=== PATIENT | female | born 1960 | race Caucasian/White ===

== ENCOUNTER → 2017-02-03 | Outpatient (CLI) | payer MEDICARE ==
--- NOTE | 2017-02-04 12:37 | MM ---
Reason for exam: follow-up at short interval from prior study. Last mammogram was performed 6 months ago. History: Patient is postmenopausal and is nulliparous. Family history of breast cancer in grandmother at age 65. Physical Findings: Nurse did not find any significant physical abnormalities on exam. MG 3D Diag Mammo W/Cad RT CC, MLO, XCCL, and ML view(s) were taken of the right breast. Prior study comparison: August 16, 2016, bilateral MG 3d screening mammo w/cad. There are scattered fibroglandular densities. No significant new findings when compared with previous films. These results were verbally communicated with the patient and result sheet given to the patient on 02/03/17. ASSESSMENT: Benign, BI-RAD 2 RECOMMENDATION: Return to routine screening mammogram schedule for both breasts. Back on schedule.
== END | disposition home or self-care (01) ==
LOC: RADMAMWWP 09:05
PROVIDERS: ATTEND Family Medicine
DX: R92.8 Other abnormal and inconclusive findings on diagnostic imaging of breast (principal)
CPT/HCPCS: G0206; G0279

== ENCOUNTER → 2017-06-24 | Outpatient (CLI) | payer MEDICARE ==
--- NOTE | 2017-06-24 10:29 | MR ---
EXAMINATION TYPE: MR cervical spine wo/w con DATE OF EXAM: 06/24/2017 COMPARISON: NONE HISTORY: spondylosis w/o myelopathy TECHNIQUE: Multiplanar, multisequence images of the cervical spine were acquired utilizing 7 mL intravenous Gada vist gadolinium contrast. Diffusion weighted imaging was performed. C2-C3: Facet arthropathy greater on the left with no canal stenosis or foraminal encroachment. No dis c herniation. C3-C4: Degenerative disc disease and broad-based left paracentral disc bulging with facet arthropathy . Moderate to severe left-sided foraminal encroachment. Motion artifact limits assessment spinal reina l. There is mild effacement of thecal sac. C4-C5: Moderate to severe degenerative disc disease with broad-based central disc protrusion. Uncover tebral joint hypertrophy and facet arthropathy contribute to bilateral foraminal encroachment. There is mild canal stenosis C5-C6: Postsurgical change with uncovertebral joint hypertrophy and facet arthropathy. Moderate bilat eral foraminal encroachment. Posterior spondylosis results in borderline canal stenosis. C6-C7: Facet arthropathy but no canal stenosis. Neural foramina appear patent. No disc herniation. C7-T1: No evidence for degenerative disc disease. No disc bulge/herniation or protrusion. No Canal stenosis. Foramina are patent bilaterally. Cervical segments are intact. There is normal alignment. Limited assessment spinal cord due to motio n artifact. Craniovertebral junction relationships are within normal limits. IMPRESSION: 1. Central disc protrusion with hypertrophic changes C4-C5 results in canal stenosis and bilateral si gnificant foraminal encroachment. 2. Stable left paracentral broad-based disc bulging with hypertrophic changes C3-C4 and left-sided fo raminal encroachment. Mild effacement of thecal sac. 3. Postsurgical changes demonstrate no diagnostic evidence of disc herniation. 4. Multilevel foraminal encroachment. 5. Limited assessment spinal cord due to motion artifact.
--- NOTE | 2017-06-26 13:10 | MR ---
EXAMINATION TYPE: MR lumbar spine w con DATE OF EXAM: 06/25/2017 COMPARISON: NONE HISTORY: intervertebral disc displacement lsp CONTRAST: 7 mL intravenous Gadavist. TECHNIQUE: Multiplanar, multisequence images of the lumbar spine were acquired. FINDINGS: Postsurgical changes are through the lumbar spine with pedicle screws present L5-S1. L5-S1: Laminectomy has been performed. No spinal canal stenosis is present. No significant anterior t hecal sac compression is evident. Minimal residual disc remains present. Foramen appear patent as vis ualized. There is limitation due to the pedicle screws. L4-L5: There is laminectomy present. Pedicle screws are present limiting evaluation of the foramen. F oramen appear patent as visualized. No AP spinal canal stenosis present. Disc level appears preserved . L3-L4: Mild disc bulge is present with anterior thecal sac contact. Facet hypertrophy is present. The re is mild diffuse narrowing. Mild facet hypertrophy is present. No AP spinal canal stenosis is prese nt. Neural foramen appear patent as visualized limitation due to the pedicles. L2-L3: No significant disc bulge or disc herniation. No spinal canal stenosis. No foraminal stenosi s. Mild facet hypertrophy is present on the right with mild posterior lateral thecal sac compression .. L1-L2: No significant disc bulge or disc herniation. No spinal canal stenosis. No foraminal stenosi s. Mild facet hypertrophy is present. No spinal canal stenosis or neural foraminal stenosis is prese nt.. T12-L1: No significant disc bulge or disc herniation. No spinal canal stenosis. No foraminal stenos is. Neural foramen are patent.. No abnormal enhancement. IMPRESSION: 1. Postsurgical changes. No stenosis is evident. Some mild canal narrowing at L3-4 may be present. Fa cet hypertrophy as noted above.
== END | disposition home or self-care (01) ==
LOC: RADMRIMAIN 08:34
PROVIDERS: ATTEND Family Medicine
DX: M50.21 Other cervical disc displacement, high cervical region (principal); M48.02 Spinal stenosis, cervical region; M51.26 Other intervertebral disc displacement, lumbar region; Z98.890 Other specified postprocedural states
CPT/HCPCS: 72149; 72156; A9581

== ENCOUNTER → 2017-08-17 | Outpatient (CLI) | payer MEDICARE ==
--- NOTE | 2017-08-22 07:18 | MM ---
Reason for exam: screening (asymptomatic). Last mammogram was performed 6 months ago. History: Patient is postmenopausal and is nulliparous. Family history of breast cancer in grandmother at age 65. Physical Findings: A clinical breast exam by your physician is recommended on an annual basis and results should be correlated with mammographic findings. MG 3D Screening Mammo W/Cad Bilateral CC and MLO view(s) were taken. Prior study comparison: February 03, 2017, right breast MG 3d diag mammo w/cad RT. August 16, 2016, bilateral MG 3d screening mammo w/cad. August 13, 2015, bilateral MG screening mammo w CAD. There are scattered fibroglandular densities. No suspicious abnormality. No significant changes when compared with prior studies. ASSESSMENT: Negative, BI-RAD 1 RECOMMENDATION: Routine screening mammogram of both breasts in 1 year.
== END | disposition home or self-care (01) ==
LOC: RADMAMWWP 08:52
PROVIDERS: ATTEND Family Medicine
DX: Z12.31 Encounter for screening mammogram for malignant neoplasm of breast (principal)
CPT/HCPCS: 77063; G0202

== ENCOUNTER 2018-01-01 10:35 | Emergency (ER) | payer MEDICARE ==
[2018-01-01 10:39] VITALS: TEMP 98
--- NOTE | 2018-01-01 11:04 | ED ---
General Adult HPI - General Chief complaint: Psychiatric Symptoms Stated complaint: Mental Health Time Seen by Provider: 01/01/18 10:41 Source: patient, family, RN notes reviewed Mode of arrival: ambulatory Limitations: no limitations - History of Present Illness Initial comments: Patient 57-year-old female presenting to the emergency room today with her with a chief complaint of having some depression. Patient doesn't that the last 3 weeks she's been feeling more down not quite like herself. states she's been sleeping more. Sensation does not seem to have any energy to wanting to do anything. States that she is in very critical of him worrying about money. States that there getting set to [place] going [place] her house here. He states that he feels that she is very stressed out and worried about money. States that she does not want him to spend any more money. Was complaining about him trying to get a haircut. States that appetites been down. States that she did make a comment of suicide last week. Patient and stated was more of a passing thought there is no specific plan. She does admit that she feels like she feels that she doesn't live. She states she has no intentions of hurting herself. She states she's too scared to do anything like that. Patient denies any other complaints or symptoms. Patient denies any recent fever, chills, shortness of breath, chest pain, back pain, nausea or vomiting, numbness or tingling, dysuria or hematuria, headaches or visual changes, or any other complaints. - Related Data Allergies Allergy/AdvReac Type Severity Reaction Status Date / Time Penicillins Allergy Unknown Verified 01/01/18 10:39 Review of Systems ROS Statement: Those systems with pertinent positive or pertinent negative responses have been documented in the HPI. ROS Other: All systems not noted in ROS Statement are negative. Past Medical History Past Medical History: Asthma History of Any Multi-Drug Resistant Organisms: None Reported Past Surgical History: Back Surgery, Bowel Resection, Hysterectomy Past Psychological History: Anxiety Smoking Status: Former smoker Past Alcohol Use History: None Reported Past Drug Use History: None Reported General Exam - General Exam Comments Initial Comments: General: The patient is awake and alert, in no distress, and does not appear acutely ill. Eye: Pupils are equal, round and reactive to light, extra-ocular movements are intact. No nystagmus. There is normal conjunctiva bilaterally. No signs of icterus. Ears, nose, mouth and throat: There are moist mucous membranes and no oral lesions. Neck: The neck is supple, there is no tenderness or JVD. Cardiovascular: There is a regular rate and rhythm. No murmur, rub or gallop is appreciated. Respiratory: Lungs are clear to auscultation, respirations are non-labored, breath sounds are equal. No wheezes, stridor, rales, or rhonchi. Musculoskeletal: Normal ROM, no tenderness. Strength 5/5. Sensation intact. Pulses equal bilaterally 2+. Neurological: A&O x 3. CN II-XII intact, There are no obvious motor or sensory deficits. Coordination appears grossly intact. Speech is normal. Skin: Skin is warm and dry and no rashes or lesions are noted. Psychiatric: Cooperative. Limitations: no limitations Course Vital Signs 01/01/18 10:37 Temperature 98.0 F Pulse Rate 95 Respiratory 20 Rate Blood Pressure 120/80 O2 Sat by Pulse 98 Oximetry Medical Decision Making - Medical Decision Making Patient has been seen here in the emergency room by [facility]. They recommend the patient may follow up outpatient. Patient has no suicidal thoughts or intentions. Patient contracts for safety will be discharged home. Advised return if any symptoms increase or worsen. - Lab Data Lab Results 01/01/18 Range/Units 11:34 Urine Opiates Screen Not Detected (NotDetected) Ur Oxycodone Screen Not Detected (NotDetected) Urine Methadone Screen Not Detected (NotDetected) Ur Propoxyphene Screen Not Detected (NotDetected) Ur Barbiturates Screen Not Detected (NotDetected) U Tricyclic Antidepress Not Detected (NotDetected) Ur Phencyclidine Scrn Not Detected (NotDetected) Ur Amphetamines Screen Not Detected (NotDetected) U Methamphetamines Scrn Not Detected (NotDetected) U Benzodiazepines Scrn Not Detected (NotDetected) Urine Cocaine Screen Not Detected (NotDetected) U Marijuana (THC) Screen Detected H (NotDetected) Disposition Clinical Impression: Depression Disposition: HOME SELF-CARE Condition: Stable Instructions: Depression (ED) Additional Instructions: Please follow-up with community mental health as discussed here in emergency room. Please return to emergency room if any symptoms increase worsen or for new concerns. Referrals: Judah Webb MD [Primary Care Provider] - 1-2 days Time of Disposition: 12:43
[2018-01-01 12:02] LABS: Amphetamine Screen,Urine Not Detected (NotDetected); Barbiturate Screen,Urine Not Detected (NotDetected); Benzodiazepines Screen,Urine Not Detected (NotDetected); Cocaine Screen,Urine Not Detected (NotDetected); Methadone Screen, Urine Not Detected (NotDetected); Opiate Screen,Urine Not Detected (NotDetected); Oxycodone Screen, Urine Not Detected (NotDetected); Phencyclidine Screen,Urine Not Detected (NotDetected); Tricyclic Antidepressant,Urine Not Detected (NotDetected); Urn Cannabinoid Scrn Detected (NotDetected)
[2018-01-01 12:59] VITALS: BP 140/88; PULSE 82; RESP 16
== END 2018-01-01 12:59 | disposition home or self-care (01) ==
LOC: EC 10:35
DX: F32.9 Major depressive disorder, single episode, unspecified (principal); Z87.891 Personal history of nicotine dependence; Z88.0 Allergy status to penicillin
CPT/HCPCS: 80306; 82075; 99284

== ENCOUNTER 2018-01-23 04:02 | Emergency (ER) | payer MEDICARE ==
[2018-01-23 04:14] VITALS: RESP 16; TEMP 97.2
[2018-01-23 04:53] LABS: Basophils % (A) 0 %; Eosinophils # (A) 0.1 k/uL (0-0.7); Eosinophils % (A) 2 %; HCT 42.4 % (34.0-46.0); HGB 13.8 gm/dL (11.4-16.0); Lymphocytes # (A) 1.4 k/uL (1.0-4.8); Lymphocytes % (A) 17 %; MCH 27.6 pg (25.0-35.0); MCHC 32.6 g/dL (31.0-37.0); MCV 84.6 fL (80.0-100.0); Mean Platelet Volume 7.1; Monocytes # (A) 0.6 k/uL (0-1.0); Monocytes % (A) 7 %; Neutrophils # (A) 5.8 k/uL (1.3-7.7); Neutrophils % (A) 72 %; Platelet Count 401 k/uL (150-450); RBC 5.01 m/uL (3.80-5.40); RDW 15.9 % (11.5-15.5); WBC 8.1 k/uL (3.8-10.6)
[2018-01-23 04:55] LABS: Appearance,Urine Cloudy (Clear); Bacteria,Urine Occasional /hpf; Bilirubin,Urine Negative (Negative); Blood,Urine Negative (Negative); Color,Urine Yellow; Glucose,Urine (UA) Negative (Negative); Ketones,Urine Negative (Negative); Leukocyte Esterase,Urine Moderate (Negative); Mucus,Urine Moderate /hpf; Nitrite,Urine Negative (Negative); PH, Urine 5.5 (5.0-8.0); Protein,Urine Trace (Negative); RBC,Urine 2 /hpf (0-5); Squamous Epithelial Cell,Urine 8 /hpf (0-4); WBC,Urine 7 /hpf (0-5)
[2018-01-23 05:06] LABS: ALT 21 U/L (9-52); AST 15 U/L (14-36); Albumin 3.8 g/dL (3.5-5.0); Alkaline Phosphatase 97 U/L (38-126); Amylase 54 U/L (30-110); Anion Gap 13 mmol/L; Blood Urea Nitrogen 12 mg/dL (7-17); C Reactive Protein <5.0 mg/L (<10.0); Calcium 9.3 mg/dL (8.4-10.2); Carbon Dioxide 24 mmol/L (22-30); Chloride 105 mmol/L (98-107); Glucose 105 mg/dL (74-99); Lipase 175 U/L (23-300); Potassium 4.1 mmol/L (3.5-5.1); Sodium 142 mmol/L (137-145); Total Bilirubin 0.3 mg/dL (0.2-1.3); Total Protein 6.2 g/dL (6.3-8.2)
--- NOTE | 2018-01-23 05:19 | XR ---
EXAM: XR Chest, 2 Views CLINICAL HISTORY: Abdominal pain TECHNIQUE: Frontal and lateral views of the chest. COMPARISON: No relevant prior studies available. FINDINGS: Lungs: Flattening of both hemidiaphragms suggests COPD. Left basilar atelectasis and/or infiltrates. Pleural space: Unremarkable. No pneumothorax. Heart: Unremarkable. No cardiomegaly. Mediastinum: Unremarkable. Bones/joints: Postoperative changes are seen involving the lower cervical spine. IMPRESSION: 1. Flattening of both hemidiaphragms suggests COPD. 2. Left basilar atelectasis and/or infiltrates.
[2018-01-23] MEDS ORDERED: NA PHOS,M-B/NA PHOS,DI-BA 133 ML ENEMA RECTAL STA (05:20)
--- NOTE | 2018-01-23 05:29 | XR ---
EXAM: XR Abdomen, 1 View CLINICAL HISTORY: Abdominal pain TECHNIQUE: Frontal supine view of the abdomen/pelvis. COMPARISON: No relevant prior studies available. FINDINGS: Gastrointestinal tract: Constipation is suggested. No dilation. Bones/joints: Patient appears to be status post L4-S1 spinal fusion with bilateral screws and rods. IMPRESSION: Constipation is suggested.
--- NOTE | 2018-01-23 06:02 | ED ---
Abdominal Pain HPI - General Chief Complaint: Abdominal Pain Stated Complaint: Female Time Seen by Provider: 01/23/18 04:24 Source: patient Mode of arrival: ambulatory Limitations: no limitations - History of Present Illness Initial Comments: CT 5 years O female comes in with the abdominal discomfort she said she hasn't moved her bowels for a few days, she denies any fever no chills she denies any nausea no vomiting. Denies any headaches no neck stiffness no chest pain or shortness of breath no frequency urgency dysuria, devious system is otherwise unremarkable. She never had any abdominal surgeries . - Related Data Previous Rx's Medication Instructions Recorded Nitrofurantoin Monohyd/M-Cryst 100 mg PO Q12HR #14 cap 01/23/18 [Macrobid] Allergies Allergy/AdvReac Type Severity Reaction Status Date / Time Penicillins Allergy Unknown Verified 01/23/18 04:14 Review of Systems ROS Statement: Those systems with pertinent positive or pertinent negative responses have been documented in the HPI. ROS Other: All systems not noted in ROS Statement are negative. Past Medical History Past Medical History: Asthma History of Any Multi-Drug Resistant Organisms: None Reported Past Surgical History: Back Surgery, Bowel Resection, Hysterectomy Past Psychological History: Anxiety Smoking Status: Former smoker Past Alcohol Use History: None Reported Past Drug Use History: None Reported General Exam - General Exam Comments Initial Comments: General: The patient is awake and alert, in no distress, and does not appear acutely ill. Skin: Skin is warm and dry and no rashes or lesions are noted. Eye: Pupils are equal, round and reactive to light, extra-ocular movements are intact; there is normal conjunctiva bilaterally. Ears, nose, mouth and throat: There are moist mucous membranes and no oral lesions. Neck: The neck is supple, there is no tenderness or JVD. Cardiovascular: There is a regular rate and rhythm. No murmur, rub or gallop is appreciated. Respiratory: To auscultation bilateral, no wheezing no rhonchi no distress respiratory [place] noticed Gastrointestinal: Soft, non-distended, positive bowel sounds and no focal area of tenderness noticed. Back: There is no tenderness to palpation in the midline. There is no obvious deformity. Musculoskeletal: Normal ROM, no tenderness, There is no pedal edema. There is no calf tenderness or swelling. No cords were appreciated. Neurological: CN II-XII intact, Cranial nerves III through XII are intact. There are no obvious motor or sensory deficits. Coordination appears grossly intact. Speech is normal. Psychiatric: Cooperative, appropriate mood & affect, normal judgment. Limitations: no limitations Course Vital Signs 01/23/18 04:08 Temperature 97.2 F L Pulse Rate 90 Respiratory 16 Rate Blood Pressure 125/87 O2 Sat by Pulse 96 Oximetry Reassessment reveals CBC, CMP, C-reactive protein are unremarkable x-ray of the chest questionable atelectasis versus new infiltrate abdominal film and KUB reveals some constipation urinalysis is positive for cystitis After fleets enema she had good results she be discharged home on a Macrobid 100 mg twice daily for UTIs Medical Decision Making - Lab Data Result diagrams: 01/23/18 04:40 01/23/18 04:40 Lab Results 01/23/18 01/23/18 01/23/18 Range/Units 04:40 04:40 04:40 WBC 8.1 (3.8-10.6) k/uL RBC 5.01 (3.80-5.40) m/uL Hgb 13.8 (11.4-16.0) gm/dL Hct 42.4 (34.0-46.0) % MCV 84.6 (80.0-100.0) fL MCH 27.6 (25.0-35.0) pg MCHC 32.6 (31.0-37.0) g/dL RDW 15.9 H (11.5-15.5) % Plt Count 401 (150-450) k/uL Neutrophils % 72 % Lymphocytes % 17 % Monocytes % 7 % Eosinophils % 2 % Basophils % 0 % Neutrophils # 5.8 (1.3-7.7) k/uL Lymphocytes # 1.4 (1.0-4.8) k/uL Monocytes # 0.6 (0-1.0) k/uL Eosinophils # 0.1 (0-0.7) k/uL Basophils # 0.0 (0-0.2) k/uL Sodium 142 (137-145) mmol/L Potassium 4.1 (3.5-5.1) mmol/L Chloride 105 (98-107) mmol/L Carbon Dioxide 24 (22-30) mmol/L Anion Gap 13 mmol/L BUN 12 (7-17) mg/dL Creatinine 0.80 (0.52-1.04) mg/dL Est GFR (CKD-EPI)AfAm >90 (>60 ml/min/1.73 sqM) Est GFR (CKD-EPI)NonAf 84 (>60 ml/min/1.73 sqM) Glucose 105 H (74-99) mg/dL Calcium 9.3 (8.4-10.2) mg/dL Total Bilirubin 0.3 (0.2-1.3) mg/dL AST 15 (14-36) U/L ALT 21 (9-52) U/L Alkaline Phosphatase 97 (38-126) U/L C-Reactive Protein <5.0 (<10.0) mg/L Total Protein 6.2 L (6.3-8.2) g/dL Albumin 3.8 (3.5-5.0) g/dL Amylase 54 (30-110) U/L Lipase 175 (23-300) U/L Urine Color Yellow Urine Appearance Cloudy H (Clear) Urine pH 5.5 (5.0-8.0) Ur Specific [place] 1.020 (1.001-1.035) Urine Protein Trace H (Negative) Urine Glucose (UA) Negative (Negative) Urine Ketones Negative (Negative) Urine Blood Negative (Negative) Urine Nitrite Negative (Negative) Urine Bilirubin Negative (Negative) Urine Urobilinogen 2.0 (<2.0) mg/dL Ur Leukocyte Esterase Moderate H (Negative) Urine RBC 2 (0-5) /hpf Urine WBC 7 H (0-5) /hpf Ur Squamous Epith Cells 8 H (0-4) /hpf Urine Bacteria Occasional H (None) /hpf Urine Mucus Moderate H (None) /hpf Disposition Clinical Impression: Abdominal pain Disposition: HOME SELF-CARE Condition: Good Instructions: Abdominal Pain (ED) Prescriptions: Nitrofurantoin Monohyd/M-Cryst [Macrobid] 100 mg PO Q12HR #14 cap Is patient prescribed a controlled substance at d/c from ED?: No If prescribed controlled substance>3 days was MAPS reviewed?: No When asked, does pt state using other controlled substances?: No Referrals: Judah Webb MD [Primary Care Provider] - 1-2 days
[2018-01-23 06:34] VITALS: BP 140/82; PULSE 83
== END 2018-01-23 06:34 | disposition home or self-care (01) ==
LOC: EC 04:02
DX: R10.9 Unspecified abdominal pain (principal); Z87.891 Personal history of nicotine dependence; Z88.0 Allergy status to penicillin; Z90.49 Acquired absence of other specified parts of digestive tract
CPT/HCPCS: 36415; 71046; 74018; 80053; 81001; 82150; 83690; 85025; 86140; 99284

== ENCOUNTER → 2018-08-18 | Outpatient (CLI) | payer MEDICARE ==
--- NOTE | 2018-08-22 09:18 | MM ---
Reason for exam: screening (asymptomatic). Last mammogram was performed 1 year ago. History: Patient is postmenopausal and is nulliparous. Family history of breast cancer in grandmother at age 65. Physical Findings: A clinical breast exam by your physician is recommended on an annual basis and results should be correlated with mammographic findings. MG 3D Screening Mammo W/Cad Bilateral CC and MLO view(s) were taken. Prior study comparison: August 17, 2017, bilateral MG 3d screening mammo w/cad. February 03, 2017, right breast MG 3d diag mammo w/cad RT. There are scattered fibroglandular densities. No suspicious abnormality. No significant changes when compared with prior studies. ASSESSMENT: Negative, BI-RAD 1 RECOMMENDATION: Routine screening mammogram of both breasts in 1 year.
== END | disposition home or self-care (01) ==
LOC: RADMAMWWP 08:46
PROVIDERS: ATTEND Family Medicine
DX: Z12.31 Encounter for screening mammogram for malignant neoplasm of breast (principal)
CPT/HCPCS: 77063; 77067

== ENCOUNTER → 2018-12-19 | Outpatient (CLI) | payer MEDICARE ==
--- NOTE | 2018-12-20 07:28 | MR ---
EXAMINATION TYPE: MR chloé/lspine wo/w con DATE OF EXAM: 12/19/2018 COMPARISON: MRI cervical and lumbar spine June 24, 2017. HISTORY: Cervicalgia / Low back pain per order. Headache with severe neck pain for years causing pain or weakness in both arms and fingers with history of prior surgery per patient. History of low back surgery 2004 with persistent severe pain for 3 years worse on the left side with pain into both lower extremities per patient. TECHNIQUE: Multiplanar, multisequence images of the cervical lumbar spine are performed without and with IV cont rast, utilizing 7.5 mL intravenous Gadavist FINDINGS: C-SPINE: FINDINGS: Sagittal images of the cervical spine show the craniocervical junction to remain within nor mal limits. The cervical and upper thoracic spinal cord remains normal in course, caliber, and signa l. Vertebral alignment is stable and satisfactory. There is redemonstration of artifact from surgica l change C5-C7 levels with some ossific fusion at C5-C6 vertebral body level. There is persistent mil d to moderate disc space narrowing C4-C5 and C7-T1 levels. Posterior disc herniations are redemonstra ken C3-C4 and C4-C5 level effacing anterior thecal sac. Moderate anterior spurring C4-C5 level is red emonstrated. The bone marrow signal intensity is within normal limits. No suspicious postcontrast enh ancement is seen. Axial images show the C2-C3 level to remain within normal limits. Axial images at C3-C4 level redemonstrate uncovertebral facet degenerative changes worse on the left with broad-based left paracentral/foraminal disc protrusion effacing anterolateral thecal sac and cau sing asymmetric moderate left-sided neural foraminal narrowing. No significant change from prior. Axial images at the C4-C5 level show artifact from surgical change. There is broad-based posterior di sc protrusion effacing anterior thecal sac nearly up to ventral surface of spinal cord with additiona l right foraminal disc protrusion component causing advanced right-sided neural foraminal narrowing a nd mild to moderate left-sided neural foraminal narrowing. No significant change from prior. Axial images at C5-C6 level show artifact degradation from surgical hardware, bilateral neural forami na are felt patent on axial image 28. Axial images at C6-C7 level show artifact from surgical hardware, there is moderate right greater julia n left bilateral neural foraminal narrowing from uncovertebral facet spurring. No significant change from prior. Axial images at C7-T1 level show artifact from anterior fusion hardware otherwise are felt within nor mal limits on image 15. IMPRESSION: Postsurgical changes C5-C7 level with stable and satisfactory alignment. Some multilevel degenerative changes redemonstrated without significant change from prior study. Findings most promin ent at C3-C4 and C4-C5 level as detailed above. L-SPINE: Sagittal images of the lumbar spine show vertebral body heights to remain satisfactory. There is pers istent artifact from posterior fusion hardware L4-S1 levels with slight grade 1 anterolisthesis of L5 on S1 stable from prior. Artificial disc material at these levels is present. There is multilevel di sc desiccation superior to this. There is moderate disc space narrowing L3-L4 level.. The conus medu llaris is somewhat low in position ending at superior L2 level without abnormal signal. The bone mar row signal intensity remains overall heterogeneous. No suspicious enhancement is noted. Posterior oss ific resection is present. Axial images at the T12-L1 level are felt within normal limits. Axial images at the L1-L2 level show mild to moderate broad disc bulge effacing anterior thecal sac o n axial image 23. Bilateral neural foramina are patent. Axial images at the L2-L3 level show mild facet degenerative changes and ligament flavum hypertrophy effacing posterior lateral thecal sac. There is mild to moderate broad disc bulge effacing anterior t hecal sac, there is mild to moderate bilateral anterior inferior neural foraminal narrowing. Axial images at the L3-L4 level show artifact from posterior surgical hardware. There is severe broad disc bulge effacing anterior thecal sac. There is posterior spinous process resection. There is susp ected severe left-sided neural foraminal narrowing seen best sagittal image 4 and moderate right-side d neural foraminal narrowing. Axial images at the L4-L5 level show laminectomy defects and spinous process resection and artificial disc material. There is relative preservation of spinal canal. Bilateral neural foramina are felt pa tent. Axial images at L5-S1 level show bilateral laminectomy defects and spinous process resection. Spinal canal is preserved. Artificial disc material is seen. Bilateral neural foramina are patent, some abbey fact degradation is noted. No suspicious retroperitoneal findings are seen. IMPRESSION: Redemonstration of postsurgical change L4-S1 level with stable alignment. Some degenerati ve changes upper to mid lumbar spine are redemonstrated most prominent at L3-L4 level as detailed abo ve.
== END | disposition home or self-care (01) ==
LOC: RADMRIMAIN 09:06
PROVIDERS: ATTEND Psychiatry & Neurology Neurology
DX: M47.812 Spondylosis without myelopathy or radiculopathy, cervical region (principal); M47.816 Spondylosis without myelopathy or radiculopathy, lumbar region; Z98.1 Arthrodesis status; Z88.0 Allergy status to penicillin
CPT/HCPCS: 72156; 72158; A9585

== ENCOUNTER → 2019-08-27 | Outpatient (CLI) | payer MEDICARE ==
--- NOTE | 2019-08-31 12:15 | MM ---
Reason for exam: screening (asymptomatic). Last mammogram was performed 1 year ago. History: Patient is postmenopausal and is nulliparous. Family history of breast cancer in grandmother at age 65. Physical Findings: A clinical breast exam by your physician is recommended on an annual basis and results should be correlated with mammographic findings. MG 3D Screening Mammo W/Cad Bilateral CC and MLO view(s) were taken. Prior study comparison: August 18, 2018, bilateral MG 3d screening mammo w/cad. August 17, 2017, bilateral MG 3d screening mammo w/cad. There are scattered fibroglandular densities. No significant changes when compared with prior studies. ASSESSMENT: Benign, BI-RAD 2 RECOMMENDATION: Routine screening mammogram of both breasts in 1 year.
== END | disposition home or self-care (01) ==
LOC: RADMAMWWP 10:02
PROVIDERS: ATTEND Family Medicine
DX: Z12.31 Encounter for screening mammogram for malignant neoplasm of breast (principal)
CPT/HCPCS: 77063; 77067

== ENCOUNTER 2019-10-08 16:24 | Emergency (ER) | payer MEDICARE ==
[2019-10-08 16:39] VITALS: TEMP 98.1
[2019-10-08] MEDS ORDERED: SODIUM CHLORIDE 0.9% 1,000 ML IV STA (17:40)
--- NOTE | 2019-10-08 17:40 | ED ---
General Adult HPI - General Chief complaint: Shortness of Breath Stated complaint: abd pain/bloating Time Seen by Provider: 10/08/19 17:25 Source: patient, RN notes reviewed, old records reviewed Mode of arrival: wheelchair Limitations: no limitations - History of Present Illness Initial comments: 59-year-old female patient with past history significant for asthma, hysterectomy, bowel resection secondary to perforated gastric ulcer presents ED for multiple complaints. Patient reports that for the last 2 months she has been having epigastric abdominal pain. Abdominal bloating. Exertional dyspnea. Denies any chest pain. Patient has history of vertigo reports that she has been experiencing this as well. Physical same as prior. Patient was seen her primary care provider for this today. She was reportedly sent here to obtain a CAT scan of the abdomen and pelvis. Denies any other complaints this time. Denies any chest pain. Systemic: Pt denies fatigue, fever/chills, rash. Pt denies weakness, night sweats, weight loss. Neuro: Pt denies headache, visual disturbances, syncope or pre-syncope. HEENT: Pt denies ocular discharge or irritation, otalgia, rhinorrhea, pharyngitis or notable lymphadenopathy. Cardiopulmonary: Pt denies chest pain, heart palpitations, dyspnea on exertion. Abdominal/GI: Pt denies n/v/d. : Pt denies dysuria, burning w/ urination, frequency/urgency. Denies new onset urinary or bowel incontinence. MSK: Pt denies myalgia, loss of strength or function in extremities. Neuro: Pt denies new onset weakness, paresthesias. - Related Data Previous Rx's Medication Instructions Recorded Nitrofurantoin Monohyd/M-Cryst 100 mg PO Q12HR #14 cap 01/23/18 [Macrobid] Nitrofurantoin Monohyd/M-Cryst 100 mg PO Q12HR 5 Days #10 cap 10/08/19 [Macrobid] Allergies Allergy/AdvReac Type Severity Reaction Status Date / Time NSAIDS (Non-Steroidal Allergy Unknown Verified 10/08/19 16:35 Anti-Inflamma Penicillins Allergy Unknown Verified 10/08/19 16:33 Review of Systems ROS Statement: Those systems with pertinent positive or pertinent negative responses have been documented in the HPI. ROS Other: All systems not noted in ROS Statement are negative. Past Medical History Past Medical History: Asthma History of Any Multi-Drug Resistant Organisms: None Reported Past Surgical History: Back Surgery, Bowel Resection, Hysterectomy Past Psychological History: Anxiety Smoking Status: Former smoker Past Alcohol Use History: None Reported Past Drug Use History: None Reported General Exam - General Exam Comments Initial Comments: Constitutional: NAD, AOX3, Pt has pleasant affect. HEENT: NC/AT, trachea midline, neck supple, no lymphadenopathy. Posterior pharynx non erythematous, without exudates. External ears appear normal, without discharge. Mucous membranes moist. Eyes PERRLA, EOM intact. There is no scleral icterus. No pallor noted. Cardiopulmonary: RRR, no murmurs, rubs or gallops, no JVD noted. Lungs CTAB in anterior and posterior parada. No peripheral edema. Abdominal exam: Abdomen soft and non-distended. Abdomen mildly tender to palpation epigastric region. There is no abdominal tenderness.. Bowel sounds active in LLQ. No hepatosplenomegaly. No ecchymosis Neuro: CN II-XII intact. No nuchal rigidity. No raccon eyes, no bronson sign, no hemotympanum. No cervical spinal tenderness. MSK: No posterior calf tenderness bilaterally, homans sign negative bilaterally. Posterior tibialis and radial pulse +2 bilaterally. Sensation intact in upper and lower extremities. Full active ROM in upper and lower extremities, 5/5 stregnth. Limitations: no limitations Course Vital Signs 10/08/19 10/08/19 10/08/19 16:35 18:00 18:57 Temperature 98.1 F Pulse Rate 93 79 85 Respiratory 18 19 Rate Blood Pressure 150/92 127/85 O2 Sat by Pulse 98 98 97 Oximetry Medical Decision Making - Medical Decision Making 59-year-old female patient with past history significant for asthma, hysterectomy, bowel resection secondary to perforated gastric ulcer presents ED for multiple complaints. Patient reports that for the last 2 months she has been having epigastric abdominal pain. Abdominal bloating. Exertional dyspnea. Denies any chest pain. Patient has history of vertigo reports that she has been experiencing this as well. Physical same as prior. Patient was seen her primary care provider for this today. She was reportedly sent here to obtain a CAT scan of the abdomen and pelvis. Denies any other complaints this time. Denies any chest pain. Patient vital signs stable, afebrile. Physical exam displayed abdomen to be nontender to palpation in epigastric region. Neurologic exam within normal limits. NIH is 0. Laboratory investigations revealed hemoglobin 11.3. Chemistry noncompressive. Troponin negative. BNP 500 lipase 166. Urine displayed mild urinary tract infection. Chest x-ray displayed a large hiatal hernia. No acute lung disease.No Significant change compared to old exam. CT abdomen and pelvis displayed normal appendix, trace of hernia, no signs of acute abdomen or pelvis. Mild constipation. EKG is nonischemic. Patient implants are long-term and nonacute nature. Workup here displayed mild constipation and urinary tract infection. Patient be initiated on Macrobid. Patient will follow-up with primary care provider will return to ER if condition worsens. Case discussed with Dr. Galloway. - Lab Data Result diagrams: 10/08/19 17:57 10/08/19 17:57 Lab Results 10/08/19 10/08/19 10/08/19 Range/Units 17:57 17:57 17:57 WBC 7.7 (3.8-10.6) k/uL RBC 4.80 (3.80-5.40) m/uL Hgb 11.3 L (11.4-16.0) gm/dL Hct 37.4 (34.0-46.0) % MCV 77.9 L (80.0-100.0) fL MCH 23.6 L (25.0-35.0) pg MCHC 30.3 L (31.0-37.0) g/dL RDW 15.9 H (11.5-15.5) % Plt Count 491 H (150-450) k/uL Neutrophils % 61 % Lymphocytes % 23 % Monocytes % 8 % Eosinophils % 3 % Basophils % 1 % Neutrophils # 4.7 (1.3-7.7) k/uL Lymphocytes # 1.8 (1.0-4.8) k/uL Monocytes # 0.6 (0-1.0) k/uL Eosinophils # 0.2 (0-0.7) k/uL Basophils # 0.1 (0-0.2) k/uL Hypochromasia Marked Microcytosis Slight Sodium 138 (137-145) mmol/L Potassium 4.3 (3.5-5.1) mmol/L Chloride 106 (98-107) mmol/L Carbon Dioxide 24 (22-30) mmol/L Anion Gap 8 mmol/L BUN 11 (7-17) mg/dL Creatinine 0.78 (0.52-1.04) mg/dL Est GFR (CKD-EPI)AfAm >90 (>60 ml/min/1.73 sqM) Est GFR (CKD-EPI)NonAf 85 (>60 ml/min/1.73 sqM) Glucose 101 H (74-99) mg/dL Plasma Lactic Acid Ronak 1.2 (0.7-2.0) mmol/L Calcium 9.7 (8.4-10.2) mg/dL Total Bilirubin 0.3 (0.2-1.3) mg/dL AST 24 (14-36) U/L ALT 14 (4-34) U/L Alkaline Phosphatase 111 (38-126) U/L Troponin I (0.000-0.034) ng/mL NT-Pro-B Natriuret Pep pg/mL Total Protein 7.7 (6.3-8.2) g/dL Albumin 4.6 (3.5-5.0) g/dL Lipase 166 (23-300) U/L Urine Color Urine Appearance (Clear) Urine pH (5.0-8.0) Ur Specific [place] (1.001-1.035) Urine Protein (Negative) Urine Glucose (UA) (Negative) Urine Ketones (Negative) Urine Blood (Negative) Urine Nitrite (Negative) Urine Bilirubin (Negative) Urine Urobilinogen (<2.0) mg/dL Ur Leukocyte Esterase (Negative) Urine RBC (0-5) /hpf Urine WBC (0-5) /hpf Ur Squamous Epith Cells (0-4) /hpf Urine Bacteria (None) /hpf Urine Mucus (None) /hpf 10/08/19 10/08/19 10/08/19 Range/Units 17:57 17:57 18:19 WBC (3.8-10.6) k/uL RBC (3.80-5.40) m/uL Hgb (11.4-16.0) gm/dL Hct (34.0-46.0) % MCV (80.0-100.0) fL MCH (25.0-35.0) pg MCHC (31.0-37.0) g/dL RDW (11.5-15.5) % Plt Count (150-450) k/uL Neutrophils % % Lymphocytes % % Monocytes % % Eosinophils % % Basophils % % Neutrophils # (1.3-7.7) k/uL Lymphocytes # (1.0-4.8) k/uL Monocytes # (0-1.0) k/uL Eosinophils # (0-0.7) k/uL Basophils # (0-0.2) k/uL Hypochromasia Microcytosis Sodium (137-145) mmol/L Potassium (3.5-5.1) mmol/L Chloride (98-107) mmol/L Carbon Dioxide (22-30) mmol/L Anion Gap mmol/L BUN (7-17) mg/dL Creatinine (0.52-1.04) mg/dL Est GFR (CKD-EPI)AfAm (>60 ml/min/1.73 sqM) Est GFR (CKD-EPI)NonAf (>60 ml/min/1.73 sqM) Glucose (74-99) mg/dL Plasma Lactic Acid Ronak (0.7-2.0) mmol/L Calcium (8.4-10.2) mg/dL Total Bilirubin (0.2-1.3) mg/dL AST (14-36) U/L ALT (4-34) U/L Alkaline Phosphatase (38-126) U/L Troponin I <0.012 (0.000-0.034) ng/mL NT-Pro-B Natriuret Pep 506 pg/mL Total Protein (6.3-8.2) g/dL Albumin (3.5-5.0) g/dL Lipase (23-300) U/L Urine Color Light Yellow Urine Appearance Cloudy H (Clear) Urine pH 5.5 (5.0-8.0) Ur Specific [place] 1.007 (1.001-1.035) Urine Protein Negative (Negative) Urine Glucose (UA) Negative (Negative) Urine Ketones Negative (Negative) Urine Blood Negative (Negative) Urine Nitrite Negative (Negative) Urine Bilirubin Negative (Negative) Urine Urobilinogen <2.0 (<2.0) mg/dL Ur Leukocyte Esterase Large H (Negative) Urine RBC 9 H (0-5) /hpf Urine WBC 16 H (0-5) /hpf Ur Squamous Epith Cells 5 H (0-4) /hpf Urine Bacteria Occasional H (None) /hpf Urine Mucus Rare H (None) /hpf - EKG Data -: EKG Interpreted by Me (and Dr. Galloway) EKG Comments: Ventricular rate 79,. Full and 60, QRS 88, QT/QTc 416/477. Normal sinus rhythm, normal EKG, no concern for acute ischemia. Disposition Clinical Impression: UTI (urinary tract infection), Constipation Disposition: HOME SELF-CARE Condition: Stable Instructions (If sedation given, give patient instructions): Constipation (ED), Urinary Tract Infection in Women (ED) Additional Instructions: Take medication as directed. Follow-up with primary care provider tomorrow. Return to ER if condition worsens in any way. Prescriptions: Nitrofurantoin Monohyd/M-Cryst [Macrobid] 100 mg PO Q12HR 5 Days #10 cap Is patient prescribed a controlled substance at d/c from ED?: No Referrals: Judah Webb MD [Primary Care Provider] - 1-2 days
[2019-10-08] MEDS ORDERED: SODIUM CHLORIDE 0.9% 500 ML 500 ML IV STA (17:49)
[2019-10-08 18:21] LABS: Basophils # (A) 0.1 k/uL (0-0.2); Basophils % (A) 1 %; Eosinophils # (A) 0.2 k/uL (0-0.7); Eosinophils % (A) 3 %; HCT 37.4 % (34.0-46.0); HGB 11.3 gm/dL (11.4-16.0); Hypochromasia Marked; Lymphocytes # (A) 1.8 k/uL (1.0-4.8); Lymphocytes % (A) 23 %; MCH 23.6 pg (25.0-35.0); MCHC 30.3 g/dL (31.0-37.0); MCV 77.9 fL (80.0-100.0); Mean Platelet Volume 7.2; Microcytosis Slight; Monocytes # (A) 0.6 k/uL (0-1.0); Monocytes % (A) 8 %; Neutrophils # (A) 4.7 k/uL (1.3-7.7); Neutrophils % (A) 61 %; Platelet Count 491 k/uL (150-450); RDW 15.9 % (11.5-15.5); WBC 7.7 k/uL (3.8-10.6)
[2019-10-08 18:33] LABS: ALT 14 U/L (4-34); AST 24 U/L (14-36); African American GFR (CKD) >90 (>60 ml/min/1.73 sqM); Albumin 4.6 g/dL (3.5-5.0); Alkaline Phosphatase 111 U/L (38-126); Anion Gap 8 mmol/L; Blood Urea Nitrogen 11 mg/dL (7-17); Calcium 9.7 mg/dL (8.4-10.2); Carbon Dioxide 24 mmol/L (22-30); Chloride 106 mmol/L (98-107); Glucose 101 mg/dL (74-99); Non-African American GFR(CKD) 85 (>60 ml/min/1.73 sqM); Potassium 4.3 mmol/L (3.5-5.1); Sodium 138 mmol/L (137-145); Total Bilirubin 0.3 mg/dL (0.2-1.3); Total Protein 7.7 g/dL (6.3-8.2)
--- NOTE | 2019-10-08 19:10 | XR ---
EXAMINATION TYPE: XR chest 2V DATE OF EXAM: 10/08/2019 COMPARISON: 01/23/2018 HISTORY: Chest pain TECHNIQUE: FINDINGS: There is moderate size hiatal hernia. Lungs are clear. There is no heart failure. There are no hilar masses. Costophrenic angles are clear. Bony thorax is intact. IMPRESSION: Large hiatal hernia. No acute lung disease. No significant change compared to old exam.
--- NOTE | 2019-10-08 19:31 | CT ---
EXAMINATION TYPE: CT abdomen pelvis w con DATE OF EXAM: 10/08/2019 COMPARISON: None HISTORY: Epigastric pain. CT DLP: 1040.6 mGycm Automated exposure control for dose reduction was used. CONTRAST: Performed with IV Contrast, patient injected with 100 mL of Isovue 300. Multiple axial sections were obtained from the diaphragm. Floor the pelvis with intravenous contrast Isovue 100 mL. There is a large hiatal hernia. Heart size is normal. There is no pericardial effusion. There is no p leural effusion. There are clips at the gastroesophageal junction. Liver spleen pancreas appear hannah l. Gallbladder is contracted. Bile ducts are not dilated. There is no adrenal mass. Kidneys show satisfactory contrast opacification. There is no hydronephrosi s. There is no retroperitoneal adenopathy. Ureters are not dilated. Bladder distends smoothly. There is no inguinal hernia. There is no free fluid in the pelvis. There is no mesenteric edema. There is no ascites or free air. There is posterior fusion surgery in t he lower lumbar spine. There is no lumbar compression fracture. Bony pelvis is intact. There is large degenerative cyst in the left acetabulum. There is severe narrowing of the left hip joint space. The re are subchondral cystic change in the left femoral head. There is less severe narrowing of right hi p joint space. There is no evidence of a fracture. Appendix is posterior and appears normal. IMPRESSION: Normal appendix. Large hiatal hernia. No sign of acute abdomen and pelvis. Mild constipation. Hip joint osteoarthritis as above.
[2019-10-08 20:14] LABS: Appearance,Urine Cloudy (Clear); Bacteria,Urine Occasional /hpf; Bilirubin,Urine Negative (Negative); Blood,Urine Negative (Negative); Color,Urine Light Yellow; Glucose,Urine (UA) Negative (Negative); Ketones,Urine Negative (Negative); Leukocyte Esterase,Urine Large (Negative); Mucus,Urine Rare /hpf; Nitrite,Urine Negative (Negative); PH, Urine 5.5 (5.0-8.0); Protein,Urine Negative (Negative); RBC,Urine 9 /hpf (0-5); Specific Gravity,Urine 1.007 (1.001-1.035); Squamous Epithelial Cell,Urine 5 /hpf (0-4); Urobilinogen,Urine <2.0 mg/dL (<2.0); WBC,Urine 16 /hpf (0-5)
[2019-10-08] MEDS ORDERED: NITROFURANTOIN MONOHYD/M-CRYST 100 MG CAP PO STA (20:37)
[2019-10-08 20:57] VITALS: BP 150/90; PULSE 82; RESP 18
== END 2019-10-08 21:00 | disposition home or self-care (01) ==
LOC: EC 16:24
DX: N39.0 Urinary tract infection, site not specified (principal); K59.00 Constipation, unspecified; K44.9 Diaphragmatic hernia without obstruction or gangrene; R06.09 Other forms of dyspnea; Z87.891 Personal history of nicotine dependence; Z88.0 Allergy status to penicillin; Z88.6 Allergy status to analgesic agent; Z90.49 Acquired absence of other specified parts of digestive tract; Z90.710 Acquired absence of both cervix and uterus; Z95.5 Presence of coronary angioplasty implant and graft; Z53.8 Procedure and treatment not carried out for other reasons
CPT/HCPCS: 36415; 93005; 83880; 80053; 83605; 83690; 84484; 85025; 81001; 87086; 71046; 74177; 99285; 96360; 96361; Q9967

== ENCOUNTER → 2020-03-06 | Outpatient (CLI) | payer MEDICARE | END | disposition home or self-care (01) | LOC: LABPAT 07:11 | PROVIDERS: ATTEND Orthopaedic Surgery | DX: Z01.818 Encounter for other preprocedural examination (principal); Z01.812 Encounter for preprocedural laboratory examination; M16.12 Unilateral primary osteoarthritis, left hip | CPT/HCPCS: 87070 ==

== ENCOUNTER 2020-03-11 08:36 | Inpatient (IN) | payer MEDICARE ==
--- NOTE | 2020-03-10 12:00 | HP ---
HISTORY AND PHYSICAL CHIEF COMPLAINT: Left hip pain. HISTORY OF PRESENT ILLNESS: The patient is a 59-year-old female on disability, who presents with progressive left hip pain for the past year. It has significantly increased over the past 6 months. She is ambulating with a cane. She has tried previous medications along with medical marijuana with only partial temporary relief. PAST MEDICAL HISTORY: Significant for arthritis, asthma, anemia, psoriasis. PAST SURGICAL HISTORY: Significant for previous lumbar fusion with instrumentation along with cervical fusion and hysterectomy. CURRENT MEDICATIONS: Advair, albuterol, Prilosec, Ventolin, Zanaflex. She has allergies to PENICILLIN. FAMILY HISTORY: Significant for cancer and renal disease. SOCIAL HISTORY: Negative for current tobacco or alcohol use. She does admit to medical marijuana use. 16 POINT REVIEW OF SYSTEMS: Otherwise reviewed and is noncontributory. PHYSICAL EXAMINATION: On examination, the patient is approximately 5 foot 1, 150 pounds of endomorphic habitus. HEENT exam is nonfocal. Neck is supple. Passive motion left hip, flexion is 70 degrees, external rotation of the hip flexed 35 degrees, internal rotation 0 degrees with pain. Clinically, she has shortening of the left lower extremity compared to the right. She walks with an antalgic gait pattern. She has limited lumbar spine motion. Her distal neurovascular appears intact in the left lower extremity. X-rays of the left hip up in the office show severe osteoarthrosis with [id number] changes. IMPRESSION: 1. Left hip severe osteoarthrosis. 2. History of lumbar fusion. 3. History of psoriasis. RECOMMENDATIONS: I talked to the patient at length regarding her condition and treatment options. At this point, she is quite symptomatic and limited because of pain related to her hip osteoarthrosis. After a thorough discussion, she opts to proceed with surgery. We will plan to proceed with left total hip arthroplasty. We will likely perform that utilizing a direct lateral approach. We will institute DVT prophylaxis postoperatively. Risks and benefits were discussed at length in layman's terms. MMODL / IJN: [id number] /
[2020-03-10 13:02] VITALS: BMI 30.4
[~2020-03-11 08:36] MED LIST: ACETAMINOPHEN TAB 500 MG TAB PO ONE; CLINDAMYCIN 900 MG in DEXTROSE 5% IN WATER 50 ML IVPB ONE; DEXAMETHASONE SOD PHOSPHATE 10 MG/ML 1 ML VIAL IV ONE; LIDOCAINE 1% (10MG/ML) FOR IV START INTRADERMA PRN; ONDANSETRON 4 MG/2 ML VIAL IVP ONE; ROPIVACAINE 246.25 MG, EPINEPHrine 0.5 MG, KETOROLAC 30 MG, cloNIDine HCL/PF 80 MCG, WA... MISCELLANE ONE; SCOPOLAMINE 1.5MG/72HR PATCH TRANSDERM ONE; TRANEXAMIC ACID 1,000 MG in SODIUM CHLORIDE 0.9% 100 ML IVPB ONE
[2020-03-11] MEDS ORDERED: ROPIVACAINE 246.25 MG, EPINEPHrine 0.5 MG, KETOROLAC 30 MG, cloNIDine HCL/PF 80 MCG, WA... MISCELLANE ONE ×5 (09:05)
[2020-03-11] MEDS: LACTATED RINGERS 1,000 ML IV SCH (09:22)
[2020-03-11] MEDS ORDERED: MIDAZOLAM 2 MG/2 ML VIAL ONE (09:35)
[2020-03-11] MEDS ORDERED: fentaNYL (PF) 50 MCG/ML 2 ML AMP ONE (09:35)
[2020-03-11] MEDS ORDERED: HYDROmorphone (PF) 1 MG/ML ONE (09:35)
[2020-03-11] MEDS ORDERED: ePHEDrine SULFATE/0.9% NACL/PF 50 MG/5 ML SYRINGE IV ONE (09:35)
[2020-03-11] MEDS ORDERED: ROCURONIUM BROMIDE 10 MG/ML 5 ML VIAL IV ONE (09:35)
[2020-03-11] MEDS ORDERED: SODIUM CHLORIDE 0.9% 100 ML BAG ONE (09:35)
[2020-03-11] MEDS ORDERED: TRANEXAMIC ACID 1,000 MG/10 ML VIAL ONE (09:35)
[2020-03-11] MEDS ORDERED: NEOSTIGMINE 1 MG/ML 10 ML VIAL ONE (09:35)
[2020-03-11] MEDS ORDERED: SUCCINYLCHOLINE CHLORIDE 100 MG/5 ML SYR IV ONE (09:35)
[2020-03-11] MEDS ORDERED: PROPOFOL 10 MG/ML 20 ML VIAL IV ONE (09:35)
[2020-03-11] MEDS ORDERED: GLYCOPYRROLATE 0.2 MG/ML 2 ML VIAL ONE (09:35)
[2020-03-11] MEDS ORDERED: ceFAZolin 3,000 MG in SODIUM CHLORIDE 0.9% IRRIGATIO 3,000 ML IRRIGATION ONE (10:10)
[2020-03-11] MEDS ORDERED: LACTATED RINGERS 1,000 ML IV ONE (11:15)
--- NOTE | 2020-03-11 11:31 | P.OP ---
Date of Procedure: 03/11/20 Preoperative Diagnosis: Severe left hip osteoarthrosis Postoperative Diagnosis: Same Procedure(s) Performed: Left total hip arthroplastypress-fitlateral approach Implants: Depuy Corail size 11 press-fit collared standard femoral stem, 32 mm +1 cobalt chrome femoral head, 50 mm Tenino acetabular shell with neutral polyethylene liner. Anesthesia: GUTIERREZ Surgeon: Bret Pulido Biologist #1: Farhat Clark Estimated Blood Loss (ml): 100 Pathology: other (Femoral head) Condition: stable Disposition: PACU Indications for Procedure: The patient's a 59-year-old female who presents with progressive left hip pain secondary to osteoarthrosis despite conservative measures. A discussion of the risks and benefits of operative intervention versus continued conservative measures was made with patient she opted to proceed with surgery. Operative risks to include infection, neurovascular injury, development of blood clots, possible fracture, likely discrepancy, instability, possible failure of components and need for subsequent procedures was discussed. Informed consent was obtained. Operative Findings: As below Description of Procedure: The patient was brought to the operating room, and after induction of general anesthesia was placed in a lateral decubitus position. The bony prominences were appropriately padded. The pelvis was stable perpendicular to the floor with a pegboard. The after lower extremity was prepped and draped in normal fashion. A 12 cm incision was then made centered over the greater trochanter extending superiorly to level the ASIS and distally in line with the femoral shaft. The skin and subcutaneous tissues were divided sharply. Electrocautery was used for hemostasis. The fascia marcus and gluteus roshni fascia was split in line with the skin incision. The muscle fibers were bluntly dissected proximally. A self-retaining retractor was placed. The anterior and posterior margins of the gluteus medius muscles identified and the anterior two thirds was detached from the greater trochanter with electrocautery. The gluteus minimus tendon was identified and detached in a similar fashion. A wide capsulotomy was performed. The femoral neck fracture was identified in the lower neck cut was made approximately 1 1/2 cm above the level of the lesser trochanter with a sagittal saw at a 45 the shaft. The head was then extracted with a corkscrew. Attention was then paid towards preparing the acetabulum. Anterior and posterior retractors were placed. The remaining capsular labral tissues debrided sharply clearly defining the acetabular margins. Began reaming with a 45 mm reamer taking care to initially medialize, then reaming at 45 of abduction and 20 of anteversion. Sequential reaming is performed up to 49 mm. This was down to bleeding bony surface. A trial 50 mm acetabular shell was inserted at 45 of abduction and 20 of anteversion. This was fully seated. There was good rim fit and stability. A neutral polyethylene liner was then impacted. Care taken to avoid any soft tissue interposition. Attention was then paid towards preparing the proximal femur. A box chisel was used to open the metaphyseal region. A canal finder was used to find the femoral canal. Sequential broaching was performed up to a size 11. This is placed in 15 of anteversion with the leg perpendicular floor judging off the trans-epicondylar axis. There is good rotational stability. A calcar mill was used to fashion the medial calcar. A trial standard neck along with a 32 mm +1 trial head was placed. The hip was gently reduced. It was taken through range of motion. I felt to be stable in flexion and extension with internal and external rotation. I felt there was adequate christianity of soft tissue tension. The hip was gently dislocated. The trial components removed. Pulsatile lavage was utilized. The final size 11 standard collared femoral stem was inserted again with the leg perpendicular to the floor in 15 of anteversion. Again there was good rotational stability. A 32 mm + 1 cobalt chrome femoral head was gently impacted. The hip was gently reduced. Again it was taken through motion and felt to be stable in flexion and extension with internal and external rotation. Pulsatile lavage was again utilized. With the leg in abduction the gluteus minimus and medius tendons reattached to the greater trochanter with #2 Ethibond suture. There was minimal drainage therefore a deep drain was not placed. The fascia marcus and gluteus roshni fascia was closed with #2 Ethibond suture. The subcutaneous tissues were reapproximated interrupted 2-0 Vicryl sutures. The skin was reapproximated with 3-0 subcuticular strata fix suture. Skin adhesive was applied. A sterile dressing was applied. The patient was awoken from sedation and transferred to recovery room in good condition. Blood loss was estimated 100 mL. No complications were incurred. Sponge and needle counts were correct in the case. Jadiel WILDER assisted during the major composes case to include exposure, implantation, and closure.
[2020-03-11] MEDS: HYDROmorphone 0.5 MG/0.5 ML SYRINGE IVP PRN ×4 (12:09→22:58)
--- NOTE | 2020-03-11 12:15 | XR ---
Limited left hip HISTORY: Postop left hip Single frontal view of the left hip Patient is status post left hip arthroplasty. Postop changes are noted at the lumbosacral junction. B one mineralization is reduced. Left hip shows normal alignment. There is lucency in the soft tissues. IMPRESSION: Orthopedic follow-up.
[2020-03-11] MEDS ORDERED: diphenhydrAMINE 50 MG/ML 1 ML VIAL IVP ONE (13:24)
[2020-03-11] MEDS ORDERED: HYDROcodone/APAP 7.5-325MG 1 EACH TAB PO PRN ×2 (14:42)
[2020-03-11] MEDS ORDERED: ONDANSETRON 4 MG/2 ML VIAL IVP PRN (14:42)
[2020-03-11] MEDS ORDERED: MAGNESIUM HYDROXIDE 2,400 MG/10 ML CUP PO PRN (14:42)
[2020-03-11] MEDS ORDERED: NALOXONE 0.4 MG/ML 1 ML VIAL IV PRN (14:42)
[2020-03-11] MEDS ORDERED: ACETAMINOPHEN TAB 325 MG TAB PO PRN (14:42)
[2020-03-11] MEDS: CLINDAMYCIN 900 MG in DEXTROSE 5% IN WATER 50 ML IVPB SCH ×4 (16:59→22:59)
[2020-03-11] MEDS: traMADol 50 MG TAB PO PRN (19:56)
[2020-03-11] MEDS ORDERED: SENNOSIDES-DOCUSATE SODIUM 1 EACH TAB PO SCH (21:00)
[2020-03-12] MEDS: HYDROmorphone 0.5 MG/0.5 ML SYRINGE IVP PRN (03:45)
[2020-03-12 06:58] LABS: Anisocytosis Slight; Basophils % (A) 0 %; Eosinophils % (A) 0 %; HCT 32.1 % (34.0-46.0); HGB 9.7 gm/dL (11.4-16.0); Hypochromasia Marked; Lymphocytes # (A) 1.5 k/uL (1.0-4.8); Lymphocytes % (A) 18 %; MCH 24.2 pg (25.0-35.0); MCHC 30.4 g/dL (31.0-37.0); MCV 79.7 fL (80.0-100.0); Microcytosis Slight; Monocytes # (A) 0.6 k/uL (0-1.0); Monocytes % (A) 7 %; Neutrophils # (A) 6.2 k/uL (1.3-7.7); Neutrophils % (A) 73 %; Platelet Count 349 k/uL (150-450); RBC 4.02 m/uL (3.80-5.40); RDW 17.7 % (11.5-15.5); WBC 8.5 k/uL (3.8-10.6)
[2020-03-12] MEDS: traMADol 50 MG TAB PO PRN (08:17)
[2020-03-12 08:36] VITALS: BP 147/84; PULSE 96; RESP 16; TEMP 98.5
[2020-03-12] MEDS ORDERED: FAMOTIDINE 20 MG TAB PO SCH (09:00)
[2020-03-12] MEDS ORDERED: RIVAROXABAN 10 MG TAB PO SCH (09:00)
[2020-03-12] MEDS: LACTATED RINGERS 1,000 ML IV SCH (09:15)
[2020-03-12] MEDS ORDERED: traMADol 50 MG TAB PO PRN (09:48)
[2020-03-12] MEDS ORDERED: traMADol 50 MG TAB PO STA (09:48)
--- NOTE | 2020-03-12 12:29 | P.PN ---
Subjective Progress Note Date: 03/12/20 Principal diagnosis: Status post left total hip arthroplasty Patient evaluated at bedside, she is resting comfortably. She is ambulating well with therapy. She has no acute complaints. She denies any chest pain or shortness of breath. Objective - Vital Signs Vital signs: Vital Signs Temp 98.5 F 03/12/20 07:00 Pulse 96 03/12/20 07:00 Resp 16 03/12/20 07:00 BP 147/84 03/12/20 07:00 Pulse Ox 96 03/12/20 07:00 Intake & Output 03/11/20 03/12/20 03/12/20 18:59 06:59 18:59 Intake Total 957 50 Output Total 100 1600 Balance 857 -1550 Weight 67 kg Intake: IV 957 Intake, IV Titration 50 Amount Clindamycin 900 mg In 50 Dextrose 5% in Water 50 ml @ 112 mls/hr IVPB ONCE ONE Rx#:[id number] Output: Urine 1600 Estimated Blood Loss 100 Other: # Voids 1 - Exam Left lower extremity: Incision is clean, dry, and intact. There is minimal soft tissue swelling and ecchymosis surrounding the medial and lateral aspects of the incision. Calf is soft, no tenderness with palpation. Plantar flexion, dorsiflexion, EHL, FHL are intact. Sensory exam to light touch throughout the extremity is intact, dorsal pedis pulses 2+. - Labs CBC & Chem 7: 03/12/20 05:52 Labs: Abnormal Lab Results - Last 24 Hours (Table) 03/12/20 Range/Units 05:52 Hgb 9.7 L (11.4-16.0) gm/dL Hct 32.1 L (34.0-46.0) % MCV 79.7 L (80.0-100.0) fL MCH 24.2 L (25.0-35.0) pg MCHC 30.4 L (31.0-37.0) g/dL RDW 17.7 H (11.5-15.5) % Assessment and Plan Assessment: Status post left total knee arthroplasty Plan: Pain control, we'll increase her tramadol to 100 mg every 6 hours GI and DVT prophylaxis, Eliquis 2.5mg bid for 2 weeks Wound care instructions discussed Home physical therapy and nursing after discharge Plan for discharge home today Time with Patient: Less than 30
--- NOTE | 2020-03-12 12:32 | P.DS ---
Providers Date of admission: 03/11/20 08:36 Expected date of discharge: 03/12/20 Attending physician: Bret Pulido Primary care physician: Samir Diasromelia [facility] Course: Date of admission: 03/11/2020 Date of discharge: 03/12/2020 Admission diagnosis: Status post left total hip arthroplasty Discharge diagnosis: Same Attending physician: Dr. Pulido Surgical procedures: Left total hip arthroplasty Brief history: Patient is a 59-year-old female with a history of progressive primary left hip osteoarthritis. At this point patient has failed conservative treatment measures and has opted to proceed with a elective left total hip arthroplasty. Hospital course: Details of patient's surgery can be found in operative report. Patient tolerated the procedure well and was subsequently transported to orthopedic floor. Patient's orthopeidc and medical care was provided daily. Patient had daily laboratory tests performed for evaluation of overall blood counts. Patient had daily physical therapy to include strengthening range of motion as well as education with walker ambulation. Patient was treated with Xarelto for their postoperative DVT prophylaxis during their inpatient stay. Patient was noted to have a relatively uneventful postoperative course. Patient reported satisfactory pain control with oral pain medications by postoperative day 0. Patient showed satisfactory progress with physical therapy. Patient moved steadily through the program and had no difficulty meeting the goals by postoperative day 1. Given patient's otherwise satisfactory course and having met physical therapy goals, plan is to discharge patient home on postoperative day [1. Discharge condition/disposition: Patient will be discharged home in stable condition. Discharge medications: Instructions are given on resumption of patient's normal daily medications per primary care recommendation, in addition patient will be prescribed Tramadol 100 mg, Eliquis 2.5mg. Discharge instructions: 1. Wound care and infection precautions, keep incision dry and covered while showering, no lotions, creams, moisturizers. No soaking, tubs, pools, hottubs. Do not scrub over the incision. 2. Weight-bear as tolerated with walker / cane until follow-up. 3. Ice and elevate when necessary. Do not exceed 20 minutes per hour with ice pack. 4. Utilize compression sleeve until seen at first follow up appointment. 5. Visiting nursing care. 6. Home physical therapy. 7. Pain meds and anticoagulants per prescription. 8. Pain medication has potential to cause constipation. Increase oral fluid and fiber intake. Contact primary care provider if you have not had a bowel movement within 48 hours after discharge 9. No anti-inflammatory medication until discussed at first post operative visit, this including Motrin, Aleve, Mobic, Diclofenac. 10. Follow up in office at 2 weeks postop with Jadiel Clark PA-C 11. Follow up with your primary care doctor 7-10 days after discharge. 12. Contact [facility] with any questions, . Procedures: Left total hip arthroplasty Patient Condition at Discharge: Good Plan - Discharge Summary Discharge Rx Participant: No New Discharge Prescriptions: New traMADol HCL [Conzip] 100 mg PO Q6HR PRN #28 cap PRN Reason: Pain Apixaban [Eliquis] 2.5 mg PO BID #60 tab No Action traMADol HCL [Ultram] 50 mg PO QID PRN PRN Reason: Pain Albuterol Inhaler [Ventolin Hfa Inhaler] 2 puff INHALATION RT-QID PRN PRN Reason: asthma sx Albuterol Nebulized [Ventolin Nebulized] 2.5 mg INHALATION Q4-6H PRN PRN Reason: asthma sx Fluticasone/Salmeterol [Advair 250-50 Diskus] 1 inhalation PO BID Discharge Medication List Albuterol Inhaler [Ventolin Hfa Inhaler] 2 puff INHALATION RT-QID PRN 03/10/20 [History] Albuterol Nebulized [Ventolin Nebulized] 2.5 mg INHALATION Q4-6H PRN 03/10/20 [History] Fluticasone/Salmeterol [Advair 250-50 Diskus] 1 inhalation PO BID 03/10/20 [History] traMADol HCL [Ultram] 50 mg PO QID PRN 03/10/20 [History] Apixaban [Eliquis] 2.5 mg PO BID #60 tab 03/12/20 [Rx] traMADol HCL [Conzip] 100 mg PO Q6HR PRN #28 cap 03/12/20 [Rx] Follow up Appointment(s)/Referral(s): Judah Webb MD [Primary Care Provider] - 03/19/20 10:40 am [facility] [NON-STAFF] - As Needed (walker) [facility], [NON-STAFF] - As Needed Farhat Clark PAC [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 Wound care and infection precautions, keep incision dry and covered while showering, no lotions, creams, moisturizers. No soaking, pools, hot tubs. Do not scrub over incision. 2. Weight-bear as tolerated with walker / cane until follow-up. 3. Ice and elevate when necessary. Do not exceed 20 minutes per hour with ice pack. 4. Utilize compression sleeve until seen at first follow up appointment. 5. Pain meds and anticoagulants per prescription. 6. Pain medication has potential to cause constipation. Increase oral fluid and fiber intake. Contact primary care provider if you have not had a bowel movement within 48 hours after discharge. 7. No anti-inflammatory medication until discussed at first post operative visit, this including Motrin, Aleve, Mobic, Diclofenac. 8. Follow up in office at 2 weeks postop with Jadiel Clark PA-C 9. Follow up with your primary care doctor 7-10 days after discharge. 10. Contact [facility] with any questions, . Discharge Disposition: HOME WITH HOME HEALTH SERVICES
--- NOTE | 2020-03-12 13:04 | P.CONS ---
History of Present Illness - Reason for Consult Asthma - History of Present Illness Patient is a pleasant 59-year-old male is admitted for left left hip arthroplasty and patient doesn't have any Perales catheter clinically doing well and pain is well-controlled did pass gas didn't move her bowels. Surgery patient denied any fever chills nausea vomiting abdominal pain dysuria cough. Review of Systems REVIEW OF SYSTEMS: CONSTITUTIONAL: No fever, no malaise, no fatigue. HEENT: No recent visual problems or hearing problems. Denied any sore throat. CARDIOVASCULAR: No chest pain, orthopnea, PND, no palpitations, no syncope. PULMONARY: No shortness of breath, no cough, no hemoptysis. GASTROINTESTINAL: No diarrhea, no nausea, no vomiting, no abdominal pain. NEUROLOGICAL: No headaches, no weakness, no numbness. HEMATOLOGICAL: Denies any bleeding or petechiae. GENITOURINARY: Denies any burning micturition, frequency, or urgency. MUSCULOSKELETAL/RHEUMATOLOGICAL: Denies any joint pain, swelling, or any muscle pain. ENDOCRINE: Denies any polyuria or polydipsia. The rest of the 14-point review of systems is negative. Past Medical History Past Medical History: Asthma, Osteoarthritis (OA) History of Any Multi-Drug Resistant Organisms: None Reported Past Surgical History: Hernia Repair, Hysterectomy Additional Past Surgical History / Comment(s): Perforated gastric ulcer. Cervical surgery. Past Anesthesia/Blood Transfusion Reactions: Postoperative Nausea & Vomiting (PONV) Past Psychological History: Anxiety, Depression Smoking Status: Former smoker Past Alcohol Use History: None Reported Additional Past Alcohol Use History / Comment(s): Smoked 10 years est, casual smoker, quit 1984 Past Drug Use History: None Reported - Past Family History Brother(s) Family Medical History: Cancer Additional Family Medical History / Comment(s): Pancreatic cancer Medications and Allergies Home Medications Medication Instructions Recorded Confirmed Type Albuterol Inhaler [Ventolin Hfa 2 puff INHALATION RT-QID PRN 03/10/20 03/11/20 History Inhaler] Albuterol Nebulized [Ventolin 2.5 mg INHALATION Q4-6H PRN 03/10/20 03/11/20 History Nebulized] Fluticasone/Salmeterol [Advair 1 inhalation PO BID 03/10/20 03/11/20 History 250-50 Diskus] traMADol HCL [Ultram] 50 mg PO QID PRN 03/10/20 03/11/20 History Apixaban [Eliquis] 2.5 mg PO BID #60 tab 03/12/20 Rx traMADol HCL [Conzip] 100 mg PO Q6HR PRN #28 cap 03/12/20 Rx Allergies Allergy/AdvReac Type Severity Reaction Status Date / Time NSAIDS (Non-Steroidal Allergy Unknown Verified 03/10/20 12:26 Anti-Inflamma Penicillins Allergy Unknown Verified 03/10/20 12:26 adhesive tape AdvReac "took skin Verified 03/10/20 12:26 off" Physical Exam Vitals: Vital Signs Temp Pulse Pulse Resp BP Pulse Ox 03/12/20 07:00 98.5 F 96 16 147/84 96 03/12/20 01:43 98.2 F 85 18 124/69 93 L 03/11/20 18:59 98.4 F 85 18 143/88 94 L 03/11/20 16:30 109 H 134/82 03/11/20 16:15 109 H 144/80 03/11/20 16:00 107 H 143/87 03/11/20 15:45 127 H 156/91 03/11/20 15:30 110 H 126/82 03/11/20 15:15 91 167/80 03/11/20 15:00 104 H 170/98 03/11/20 14:45 117 H 170/105 03/11/20 14:30 97.9 F 82 16 183/81 03/11/20 13:15 80 16 141/81 98 Intake and Output 03/11/20 03/12/20 03/12/20 22:59 06:59 14:59 Intake Total 50 Output Total 400 1200 Balance -400 -1150 Intake: Intake, IV Titration 50 Amount Clindamycin 900 mg In 50 Dextrose 5% in Water 50 ml @ 112 mls/hr IVPB ONCE ONE Rx#:[id number] Output: Urine 400 1200 Other: # Voids 1 PHYSICAL EXAMINATION: GENERAL: The patient is alert and oriented x3, not in any acute distress. Well developed, well nourished. HEENT: Pupils are round and equally reacting to light. EOMI. No scleral icterus. No conjunctival pallor. Normocephalic, atraumatic. No pharyngeal erythema. No thyromegaly. CARDIOVASCULAR: S1 and S2 present. No murmurs, rubs, or gallops. PULMONARY: Chest is clear to auscultation, no wheezing or crackles. ABDOMEN: Soft, nontender, nondistended, normoactive bowel sounds. No palpable organomegaly. MUSCULOSKELETAL: Surgical site area appears to be clean. EXTREMITIES: No cyanosis, clubbing, or pedal edema. NEUROLOGICAL: Gross neurological examination did not reveal any focal deficits. SKIN: No rashes. Results CBC & Chem 7: 03/12/20 05:52 Labs: Abnormal Lab Results - Last 24 Hours (Table) 03/12/20 Range/Units 05:52 Hgb 9.7 L (11.4-16.0) gm/dL Hct 32.1 L (34.0-46.0) % MCV 79.7 L (80.0-100.0) fL MCH 24.2 L (25.0-35.0) pg MCHC 30.4 L (31.0-37.0) g/dL RDW 17.7 H (11.5-15.5) % Assessment and Plan Plan: -History of asthma appears to be mild intermittent asthma without any acute exacerbation can continue her inhalers no steroids are required at this time -Depression -Hip arthroplasty patient is on anticoagulation for DVT prophylaxis, 10 mg of Xatrelto. Patient is medically stable to be discharged.
== END 2020-03-12 16:06 | disposition home health service (06) | DRG 470 ==
LOC: 2ORMAIN 08:36 → 4SSUR 14:10
PROVIDERS: ADMIT Orthopaedic Surgery; ATTEND Orthopaedic Surgery
PROC: 0SRB02A Replacement of Left Hip Joint with Metal on Polyethylene Synthetic Substitute, Uncemented, Open Approach (ICD-10-PCS; principal; 2020-03-11 09:50)
DX: M16.12 Unilateral primary osteoarthritis, left hip (principal); F32.9 Major depressive disorder, single episode, unspecified; F41.9 Anxiety disorder, unspecified; L40.9 Psoriasis, unspecified; D50.9 Iron deficiency anemia, unspecified; J45.20 Mild intermittent asthma, uncomplicated; E78.2 Mixed hyperlipidemia; J44.9 Chronic obstructive pulmonary disease, unspecified; M79.7 Fibromyalgia; G47.00 Insomnia, unspecified; K21.9 Gastro-esophageal reflux disease without esophagitis; M47.812 Spondylosis without myelopathy or radiculopathy, cervical region; M50.20 Other cervical disc displacement, unspecified cervical region; M51.26 Other intervertebral disc displacement, lumbar region; K59.09 Other constipation; E55.9 Vitamin D deficiency, unspecified; G89.4 Chronic pain syndrome; E66.9 Obesity, unspecified; Z68.29 Body mass index [BMI] 29.0-29.9, adult; F17.290 Nicotine dependence, other tobacco product, uncomplicated; J30.9 Allergic rhinitis, unspecified; Z79.01 Long term (current) use of anticoagulants; Z79.899 Other long term (current) drug therapy; Z88.0 Allergy status to penicillin; Z88.6 Allergy status to analgesic agent; Z91.040 Latex allergy status; Z98.1 Arthrodesis status; Z90.710 Acquired absence of both cervix and uterus; Z87.11 Personal history of peptic ulcer disease; Z85.828 Personal history of other malignant neoplasm of skin; Z80.0 Family history of malignant neoplasm of digestive organs; Z80.3 Family history of malignant neoplasm of breast; Z82.49 Family history of ischemic heart disease and other diseases of the circulatory system; Z83.3 Family history of diabetes mellitus; Z82.69 Family history of other diseases of the musculoskeletal system and connective tissue; Z84.89 Family history of other specified conditions
CPT/HCPCS: 73501; 85025; 86850; 86900; 86901; 88300

== ENCOUNTER → 2022-02-17 | Outpatient (CLI) | payer MEDICARE ==
--- NOTE | 2022-02-18 03:21 | MR ---
EXAMINATION TYPE: MR lumbar spine wo con DATE OF EXAM: 02/17/2022 COMPARISON: 12/19/2018 HISTORY: LBP, RLE radiculopathy. Prior surgery 2004. Multiplanar multiecho imaging of the lumbar spine without contrast. Lumbar vertebrae have normal alignment. There is some degenerative disc space narrowing throughout th e lumbar spine. There are rods and screws fusing posteriorly lumbar spine from L4 to S1. Detail limited by the metal artifact. There is some facet arthropathy at L3-4 and mild lateral recess stenosis. No lumbar paraspi nal mass. No compression fracture. No evidence of focal bone destruction. There is also some facet ar thropathy at L1-2 and L2-3. IMPRESSION: Multilevel posterior fusion surgery. Mild relative spinal stenosis and lateral recess stenosis at L3- 4. Detail limited by metal artifact. No compression fracture. There is overall no adverse change comp ared to the old exam.
== END | disposition home or self-care (01) ==
LOC: RADMRIMAIN 17:17
PROVIDERS: ATTEND Orthopaedic Surgery
DX: M48.061 Spinal stenosis, lumbar region without neurogenic claudication (principal); M47.26 Other spondylosis with radiculopathy, lumbar region; M51.16 Intervertebral disc disorders with radiculopathy, lumbar region; Z98.1 Arthrodesis status
CPT/HCPCS: 72148

== ENCOUNTER → 2022-03-03 | Outpatient (CLI) | payer MEDICARE ==
--- NOTE | 2022-03-03 09:34 | CT ---
EXAMINATION TYPE: CT lumbar spine wo con DATE OF EXAM: 03/03/2022 7:19 AM COMPARISON: CT dated 10/08/2019 and MRI dated 02/17/2022 HISTORY: Lumbar spine stenosis CT DLP: 714.5 mGycm Automated exposure control for dose reduction was used. Technique: Unenhanced CT of the lumbar spine was performed. Bone and soft tissue window settings are submitted as well as coronal and sagittal reconstructions. FINDINGS: Previous transpedicular fixation of L4, L5 and S1 using 2 rods and 6 metallic screws with no evidence of prosthesis break or displacement. Posterior spinal canal decompression is also seen at that level . No definite vertebral body collapse or acute displaced fracture. Degenerative changes of the lower thoracic and lumbar spine with multilevel opposing endplate osteoph ytosis, degenerated discs and facet osteoarthropathy. Marked degenerative changes with subchondral sc lerotic changes seen at L3-4 level. L1-L2: Mild retrolisthesis with diffuse posterior disc bulge and bilateral foraminal protrusions, cau sing no significant central spinal canal stenosis and mild right neural foraminal stenosis. L2-L3: Mild retrolisthesis with mild diffuse posterior disc bulge and focal right foraminal protrusio n, associated with facet osteoarthropathy and narrow interlaminar angle, causing moderate to severe c entral spinal canal stenosis and moderate to severe right neuroforaminal stenosis. L3-L4: Severe degenerative changes with marked degenerated disc, posterior osteophytosis and severe f acet osteoarthropathy, causing moderate to severe central spinal canal stenosis and severe bilateral neural foraminal stenosis compressing the corresponding L3 nerve root. L4-L5: Postsurgical changes as described above. No significant central spinal canal stenosis or neuro foraminal stenosis seen at this level. L5-S1: Mild anterolisthesis with postsurgical changes as described above. There is no obvious central spinal canal stenosis or neural foraminal stenosis seen at that level. Large hiatal hernia containing portion of the stomach. Scattered arterial atherosclerotic calcificati ons. No paraspinal lesion. IMPRESSION: Postsurgical changes as described above, associated with degenerative changes most evident at L3-4 le cristina as detailed above. Recommend clinical correlation and correlation with MRI results. Other inciden adriana findings as described above.
== END | disposition home or self-care (01) ==
LOC: RADCTMAIN 06:57
PROVIDERS: ATTEND Orthopaedic Surgery
DX: M47.816 Spondylosis without myelopathy or radiculopathy, lumbar region (principal); M48.061 Spinal stenosis, lumbar region without neurogenic claudication
CPT/HCPCS: 72131

== ENCOUNTER → 2022-03-03 | Outpatient (CLI) | payer MEDICARE ==
--- NOTE | 2022-03-04 18:35 | MM ---
Reason for Exam: Screening (asymptomatic). Last mammogram was performed 2 year(s) and 6 month(s) ago. Patient History: Menarche at age 14. Patient has no children. Left ovary removed at age 41. Right ovary removed at age 41. Hysterectomy at age 41. Postmenopausal. Maternal grandmother had breast cancer, age 65. Risk Values: Ynes 5 year model risk: 1.5%. NCI Lifetime model risk: 8.3%. Prior Study Comparison: 08/17/2017 Bilateral Screening Mammogram, [facility]. 08/18/2018 Bilateral Screening Mammogram, [facility]. 08/27/2019 Bilateral Screening Mammogram, [facility]. Tissue Density: There are scattered fibroglandular densities. Findings: Analyzed By CAD. There is a new nodule within the posterior medial right craniocaudal view. This has a transverse dimension of 4 mm and is 12 cm nipple. This is not clearly identified previously. Additional workup is recommended. Overall Assessment: Incomplete: need additional imaging evaluation, BI-RAD 0 Management: Special View Mammogram of the right breast. A negative mammogram report should not preclude additional follow up of suspicious palpable abnormalities. Patient should continue monthly self breast exam. A clinical breast exam by your physician is recommended on an annual basis and results should be correlated with mammographic findings. Electronically signed and approved by: Moisés Huerta D.O. Radiologis
== END | disposition home or self-care (01) ==
LOC: RADMAMWWP 07:24
PROVIDERS: ATTEND Family Medicine
DX: Z12.31 Encounter for screening mammogram for malignant neoplasm of breast (principal); Z78.0 Asymptomatic menopausal state; Z80.3 Family history of malignant neoplasm of breast
CPT/HCPCS: 77063; 77067

== ENCOUNTER → 2022-03-15 | Outpatient (CLI) | payer MEDICARE ==
--- NOTE | 2022-03-15 11:16 | USB ---
Reason for Exam: Additional evaluation requested from abnormal screening. Last screening mammogram was performed less than 1 month ago. Patient History: Menarche at age 14. Patient has no children. Left ovary removed at age 41. Right ovary removed at age 41. Hysterectomy at age 41. Postmenopausal. Maternal grandmother had breast cancer, age 65. Risk Values: Ynes 5 year model risk: 1.5%. NCI Lifetime model risk: 8.3%. Tissue Density: Right: There are scattered fibroglandular densities. Findings: Analyzed By CAD. Mammogram Near the chest wall under compression there appears to be a persistent oval density better visualized on the tomographic images are this is not clearly identified on the medial lateral view. Ultrasound is recommended for additional evaluation.. Technique: Method: Targeted. Findings: The lower inner quadrant of the right breast, the axilla of the right breast and the retroareolar of the right breast were scanned. Real-time linear array sonography is performed over the right breast in the lower inner quadrant. There is a 0.4 x 0.2 x 0.4 cm oval density which appears to have some mild through transmission. This may be a very tiny cyst but is too small to classify. Short-term follow-up in 6 months is recommended. There is also noted a somewhat prominent lymph node within the right axilla with the cortex measuring 0.4 cm which is somewhat thickened. Short-term follow-up is recommended. Overall Assessment: Probably benign, BI-RAD 3 Assessment: MG 3D work up w/cad RT - Right: Incomplete: need additional imaging evaluation, BI-RAD 0. US breast workup limited RT - Right: Probably benign, BI-RAD 3. Management: Diagnostic Mammogram of the right breast in 6 months. Diagnostic Breast Ultrasound of the right breast in 6 months. A clinical breast exam by your physician is recommended on an annual basis and results should be correlated with mammographic findings. Results were given to the patient verbally at the time of exam. Patient should continue monthly self breast exam. A negative mammogram or ultrasound should not preclude biopsy of suspicious palpable abnormalities. Electronically signed and approved by: Moisés Huerta D.O. Radiologis
== END | disposition home or self-care (01) ==
LOC: RADMAMWWP 10:06
PROVIDERS: ATTEND Family Medicine
DX: R92.8 Other abnormal and inconclusive findings on diagnostic imaging of breast (principal); Z78.0 Asymptomatic menopausal state; Z80.3 Family history of malignant neoplasm of breast
CPT/HCPCS: 77065; 76642; G0279; 77061

== ENCOUNTER → 2022-06-02 | Outpatient (CLI) | payer MEDICARE | END | disposition home or self-care (01) | LOC: LABPAT 08:47 | PROVIDERS: ATTEND Orthopaedic Surgery | DX: Z53.9 Procedure and treatment not carried out, unspecified reason (principal) ==

== ENCOUNTER → 2022-06-02 | Outpatient (CLI) | payer MEDICARE ==
[2022-06-02 10:29] LABS: INR 0.9 (<1.2); Partial Thromboplastin Time 23.9 sec (22.0-30.0); Prothrombin Time 9.6 sec (9.0-12.0)
[2022-06-02 11:16] LABS: Appearance,Urine Clear (Clear); Bilirubin,Urine Negative (Negative); Blood,Urine Negative (Negative); Color,Urine Yellow; Glucose,Urine (UA) Negative (Negative); Ketones,Urine Negative (Negative); Leukocyte Esterase,Urine Moderate (Negative); Nitrite,Urine Negative (Negative); PH, Urine 6.5 (5.0-8.0); Protein,Urine Negative (Negative); Squamous Epithelial Cell,Urine 4 /hpf (0-4); Urobilinogen,Urine <2.0 mg/dL (<2.0); WBC,Urine 5 /hpf (0-5)
[2022-06-02 14:13] LABS: HGB 10.5 g/dL (12.0-15.0); MCH 21.8 pg (27.0-32.0); MCHC 29.2 g/dL (32.0-37.0); MCV 74.7 fL (80.0-97.0); Mean Platelet Volume 9.4 fL (9.5-12.2); NRBC Per 100 WBC 0 /100 WBCS (0.0-0.0); Platelet Count 555 X 10*3/uL (140-440); RBC 4.82 X 10*6/uL (4.10-5.20); RDW 20.7 % (11.5-14.5); WBC 7.23 X 10*3/uL (4.50-10.00)
[2022-06-02 14:39] LABS: Basophils # (A) 0.05 X 10*3/uL (0.00-0.10); Basophils % (A) 0.7 %; Eosinophils # (A) 0.28 X 10*3/uL (0.04-0.35); Eosinophils % (A) 3.9 %; Immature Grans, Automated 0.3 %; Lymphocytes # (A) 1.39 X 10*3/uL (0.90-5.00); Lymphocytes % (A) 19.2 %; Monocytes # (A) 0.86 X 10*3/uL (0.20-1.00); Monocytes % (A) 11.9 %; Neutrophils # (A) 4.63 X 10*3/uL (1.80-7.70)
[2022-06-02 15:08] LABS: African American GFR (CKD) 93.5 (60.0-200.0); Albumin 4.7 g/dL (3.8-4.9); Albumin/Globulin Ratio 1.68 (1.60-3.17); Anion Gap 12.2 mmol/L (10.00-18.00); BUN/Creat Ratio 10.88 Ratio (12.00-20.00); Blood Urea Nitrogen 8.7 mg/dL (9.0-27.0); Calcium 9.6 mg/dL (8.7-10.3); Carbon Dioxide 23.8 mmol/L (20.0-27.5); Globulin 2.8 g/dL (1.6-3.3); Non-African American GFR(CKD) 80.7 (60.0-200.0); Potassium 4.9 mmol/L (3.5-5.5); Total Bilirubin 0.2 mg/dL (0.30-1.20); Total Protein 7.5 g/dL (6.2-8.2)
== END | disposition home or self-care (01) ==
LOC: LABWHC1 08:45
PROVIDERS: ATTEND Family Medicine
DX: Z01.812 Encounter for preprocedural laboratory examination (principal)
CPT/HCPCS: 36415; 80053; 81001; 85025; 85610; 85730; 87070

== ENCOUNTER 2022-06-08 05:47 | Inpatient (IN) | payer MEDICARE ==
--- NOTE | 2022-06-02 11:20 | P.HPOR ---
History of Present Illness H&P Date: 06/02/22 Chief Complaint: Low back pain, LE weakness, neurogenic claudication [facility] History and Physical Date of :[birth year] Age: 61 year Height: 5'1" Weight: 150 lbs BP:125/77 BMI: 28.34 kg/m2 Occupation: Disabled VAS: 6 CHIEF COMPLAINT: Lumbar pain HISTORY: Xrays No new xrays taken in office Trauma or injury No Work-Related No Pain description dull, sharp. Location diffuse Activity Modification yes , unable to stand or weightbear for extended periods of time. Hand Dominance right DOI: None. DOS: None. TREATMENTS COMPLETED: 6 weeks of PT completed? No Physician directed home exercise completed? Yes, daily with mild relief Medications yes List: Flexeril 10mg, Tramadol with mild relief of her symptoms. Alternative interventions Chiropractic: No Massage therapy: No Brace: No Injections Yes (lumbar PAULIE) Did they help? No, exacerbated her symptoms. RFA: No SUBJECTIVE: Ms. Lakhani returns to the office for a pre-operative recheck of their low back. Since the time of the last appointment the patient reports no significant improvements to her symptoms, noting continued pain about low back into the lower extremities with numbness and tingling about the thighs. Ms. Lakhani symptoms are exacerbated with most daily activities, due to this they notes that it is increasingly difficult for Ms. Lakhani to complete many of their daily t asks. Patient is having severe sleep disturbances as well due to their ongoing pain and associated symptoms. Regarding treatments, the patient has previously trialed home exercises, lumbar PAULIE's, Flexeril 10mg, and tramadol all without relief of her symptoms. Patient denies trialing any other modalities at this time. For their symptoms, the patient has been taking the Toradol course previously prescribed without any improvements. Otherwise the patient denies any f/c/sob/cp, no incision concerns, no bladder or bowel retention/incontinence, no perineal numbness/tingling, and ambulates independently. HISTORY Ms. Lakhani was last seen on 02/19/2022 regarding a recheck of her low back and to review her MRI obtained after the time of the last appointment. Since the time of the last appointment the patient reports that she has seen no improvements to her symptoms. Patient reports continued, sharp pain about the low back radiating into the bilateral lower extremities that is causing significant debility and sleep disturbances. Overall she notes that she has seen no significant improvements to her symptoms with all conservative modalities trialed thus far. Patient continues to deny any f/c/sob/cp, no bladder or bowel retention/incontinence, no perineal numbness/tingling, and ambulates independently. Patient last returned to the office on 01/08/2022 for a recheck of her low back. Since the time of the last appointment the patient reports that her symptoms have not improved. She continues to complain of severe lumbar pain radiating into the bilateral lower extremities. With the pain she does continue to complain of numbness and tingling extending into the bilateral thighs as well. As for treatments she has continued with the physician directed home exercise program daily along with flexeril and tramadol with mild relief. Overall she reports continued disability and great difficulty completing daily tasks due to pain. Additionally the patient does note frequent sleep disturbances due to her pain as well. Otherwise the patient continues to deny any bladder or bowel retention/incontinence, no perineal numbness/tingling, and ambulates independently. Ms. Lakhani last presented to the office on 11/13/2021 for an evaluation of her lumbar spine. She reports pain ongoing for 3-4 months with no known injury or trauma to indicate an exact onset of her symptoms. With this, she does report that her symptoms have progressively worsened in severity. Regarding her symptoms, the patient reports diffuse, posterior lumbar pain that radiates into the right lower extremity. She describes the pain as a sharp burning as well. In addition to the pain the patient does report numbness and tingling in the right thigh diffusely. Due to this she does report progressive weakness and loss of daily function. Patient is additionally having sleep disturbances. Regarding treatments, the patient reports trialing Flexeril 10mg and Tramadol with mild relief of her symptoms. Additionally she she has had a lumbar PAULIE which exacerbated her symptoms. Otherwise she denies any bladder or bowel retention/incontinence, no perineal numbness/tingling, and ambulates independently. The patients' past social, medical, family, surgical history, as well as review of systems, have been reviewed. Please refer to the Neurosurgery History and Physical form that has been scanned in to our electronic medical record system. 16 points review of systems completed and as stated in HPI, all other systems reviewed are negative. Social History: Reviewed, see appropriate section of the chart for details. P3 Social History: Smoking:former Quit 1987 Alcohol: none P3 Family History: Reviewed, see appropriate section of the chart for details. P2 Past Medical History: Reviewed, see appropriate section of the chart for details. P1 Current Medications: Rx: ADVAIR DISKUS 500-50 Inhalation Inhalant, Ref: 0 Rx: ALBUTEROL SULFATE 0.083% Inhalation Nebulize Solution, Ref: 0 Rx: PRILOSEC OTC 20MG ORAL Capsule, Ref: 0 Rx: VENTOLIN HFA 108 MCG/ACT Inhalation Inhalant, Ref: 0 Rx: ZANIFLEX ORAL , Ref: 0 Rx: Flexeril Ref: 0 Rx: traMADol 50 mg tablet Ref: 0 Rx: ketorolac 10 mg tablet Ref: 0 PHYSICAL EXAMINATION: General: Awake, alert, appropriate for age, in no acute distress. HEENT: No unusual neck masses around region of lateral neck triangle, thyroid, supraclavicular groove Heart: Regular rate and rhythm, normal S1, S2 and no murmur/gallop. Lungs: Clear to auscultation bilaterally with no use of accessory muscles. Extremities: Skin warm and dry without acute lesions, coloration, temperature, skin intact, no tenderness or erythema Integument: Hairy patches: Absent Dorsal skin dimples: Absent Cafe au lait spots: Absent Surgical incisions: Yes, well healed midline lumbar incision Palpation: Please see Pain drawing on Intake sheet for further detail. Midline spinal tenderness: No E6 Paralumbar tenderness: No E6 Parathoracic tenderness: No E6 Buttocks tenderness: No E6 Special findings: No Bilateral SI tenderness, right worse than left POSTURAL and MUSCULO-SKELETAL EVALUATION: Coronal Balance: NEUTRAL Recumbent testing: Patient is able to lay flat on back Sagittal Balance: NEUTRAL Shoulder Profile: LEVEL Pelvic Girdle: LEVEL Neck ROM: UNRESTRICTED Lumbar ROM: RESTRICTED WITH PAIN Shoulder ROM: Symmetrical Hip ROM: Symmetrical Knee ROM: Symmetrical Hands: Normal appearance, symmetrical Feet: Normal appearance, Symmetrical VASCULAR STATUS : LEFT RIGHT Wrist Pulses INTACT INTACT Pedal Pulses (Dors. pedis & post.tibialis) INTACT INTACT Color NORMAL NORMAL Edema Absent Absent NEUROLOGIC EXAMINATION: Mental Status:Awake and alert, fully oriented, with normal attention, concentration and memory, and fluent, appropriate speech. Cranial Nerves: I: Olfactory not tested. II: Visual acuity normal, no visual field deficit noted with confrontation. III,IV: Normal pupillary reflexes & intact extraocular movements without nystagmus. V,: Intact symmetrical facial sensation. VII: Intact symmetrical facial motor movement VIII: Hearing intact. IX,X: Intact gag, swallow, & normal voice. XI: Sternocleidomastoid, trapezius function intact. XII: Tongue midline with normal movements. L'hermitte's Sign: Negative / absent Spurling'Sign: Absent bilaterally. Cubital percussion test: Absent bilaterally. Fitzgerald-Tinel sign - Carpal region: Absent bilaterally. Straight Leg Raising: Absent bilaterally. Crossed straight leg raise: negative O8 MOTOR EXAM (0-5/5, N/T) STRENGTH RIGHT LEFT Shoulder Abd (not part of the VIGNESH score) 5 5 Elbow Flexors 5 5 Elbow Extensor 5 5 Wrist Dorsiflexors 5 5 Finger Abductor 5 5 Corn Cooker 5 5 Hip Flexor (Not part of VIGNESH Motor score) 4 5 Knee Flexor 4 5 Knee Extensor 4 5 Ankle dorsiflexor 4 5 Ankle plantarflexion 4 5 Extensor hallucis 4 5 REFLEXES(0-4/2, NT) RIGHT LEFT Upper Extremities 2 2 Lower Extremities 2 2 Pathological Reflexes RIGHT LEFT Fitzgerald's Absent Absent Clonus Absent Absent Babinski Absent Absent # Indicates mechanical impairment Muscle appearance: Symmetrical, without signs of atrophy or dystrophy. Sensory system (0-4, N/T) Test type RU ANGELI RL LL Joint-Position 2 2 2 2 Vibration 2 2 2 2 Pain & LT sense 2 2 2 2 Dermatomal Deficit: None None None None Gait and Functional Evaluation: Ambulatory aids: Independent Romberg's test: Intact bilaterally Toe heel walk / heel-toe walk intact while maintaining satisfactory balance? No Squatting/straightening w/o assistance to a min of 60 degree knee flexion? No Single leg stance: not intact on the right side Trendelenburg sign negative bilaterally Hand and finger dexterity intact bilaterally? yes Disdiadochokinesis examination negative bilaterally? yes RADIOGRAPHIC STUDIES: XRay taken on 11/13/21 of Lumbar Spine: x-rays reviewed in the office today demonstrate posterior lateral fusion at L4 t o S1. Hardware appears to be in good position there is good anterior fusion. There is adjacent segment disease noted at L3-L4 with disc collapse retrolisthesis foraminal stenosis bilaterally and likely central stenosis. There is severe facet arthrosis at this level. There are no acute fractures or dislocations otherwise noted alignment is fairly well-maintained coronal and sagittal planes. AP pelvis to Straits postoperative changes with left total hip arthroplasty in good position or evidence of loosening hardware failure. No fracture or other dislocation noted CT scan from 03/03/2022 of the lumbar spine: Reviewd. Post surgical chaanges noted L4-S1 with L4 screws showing some haloing around the tips with some cutout. No overt failures. There is some reasonable fusion bed noted L4-5 but L5-S1 shows minimal. There is minimal anterior arthrodesis noted as well. There is ASD noted L2-4 which is severe at this time. There is complete disc collapse, vacuum phenomena and severe OA changes with facet overgrowth causing stenosis as well as osteophytosis. No fractures noted. No lesions at this time. Overall alignment flattened LL with some mismatch noted. MRI Lumbar spine 02/17/22: Images reviewed. Post surgical changes noted L4-S1. Severe ASD noted L3-4 and L2-3 with disc collapse, severe central and b/l foraminal stenosis, spondylosis, facet hypertrophy and ligamental hypertrophy which correlate with pt symptoms. Segmental flattening of lumbar lordosis due to these changes at these levels. No fracture noted No Lesions noted. IMPRESSION: It was my pleasure to have seen and examined Lawanda. I reviewed the patient's clinical syndrome, physical findings, and imaging studies during the appointment today. It is my impression that the patient has a diagnosis of. 1. 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 L2-3 and L3-4 central and foraminal stenosis, severe 3. Neurogenic claudication 4. Mechanical low back pain secondary to the above 5. LE weakness 6. LE radiculopathy .DX:Diagnosis: Lumbar spondylosis : ICD10 = M47.816 / ICD9 = 721.3 / SNOMED = 435258967 .DX:Diagnosis: Neurogenic claudication : ICD10 = G95.19 / ICD9 = 729.2 / SNOMED = 637087202 .DX:Diagnosis: Weakness of both legs : ICD10 = G82.20 / ICD9 = 344.1 / SNOMED = 9435151 .DX:Diagnosis: Mechanical low back pain : ICD10 = M54.59 / ICD9 = 724.2 / SNOMED = 951141498 I outlined the natural course history without intervention and various interventional options. PLAN: Based on my findings I suggest the following course of action: -Advised patient to continue with supplements, health maintenance, and home exercise programs. Patient expressed understanding and will continue with these modalities. - The nature of the disorder and treatment options were discussed with the patient. We review her advanced imaging and failure to improve with conservative modalities.I discussed treatment options with the patient, including operative and non-operative options, and they have elected to proceed with the following surgical procedure: revision L2-Pelvis decompression and fusion (48212, 27307, 54105, 28777, 40016, 61142, 62880, 85554) The indications, risks, benefits, and alternatives to surgery were discussed with the patient and family at length. Specifically (but not limited to) the risks of infection, stiffness, recurrence of symptoms, need for revision surgery, local numbness, neurovascular injury, and blood clots were discussed. The patient's questions were answered. She would like to proceed with scheduling the surgery Spine Surgery Risk Review Ms. Lakhani is presenting for evaluation of low back pain. It was my pleasure to have seen and examined Ms. Lakhani. In our visit today we have had a chance to go over subjective complaints, physical examination findings and treatments including the natural course hist ory without intervention and various interventional options. The patients imaging demonstrates: XRay taken on 11/13/21 of Lumbar Spine: x-rays reviewed in the office today demonstrate posterior lateral fusion at L4 to S1. Hardware appears to be in good position there is good anterior fusion. There is adjacent segment disease noted at L3-L4 with disc collapse retrolisthesis foraminal stenosis bilaterally and likely central stenosis. There is severe facet arthrosis at this level. There are no acute fractures or dislocations otherwise noted alignment is fairly well-maintained coronal and sagittal planes. AP pelvis to Straits postoperative changes with left total hip arthroplasty in good position or evidence of loosening hardware failure. No fracture or other dislocation noted CT scan from 03/03/2022 of the lumbar spine: Reviewd. Post surgical chaanges noted L4-S1 with L4 screws showing some haloing around the tips with some cutout. No overt failures. There is some reasonable fusion bed noted L4-5 but L5-S1 shows minimal. There is minimal anterior arthrodesis noted as well. There is ASD noted L2-4 which is severe at this time. There is complete disc collapse, vacuum phenomena and severe OA changes with facet overgrowth causing stenosis as well as osteophytosis. No fractures noted. No lesions at this time. Overall alignment flattened LL with some mismatch noted. MRI Lumbar spine 02/17/22: Images reviewed. Post surgical changes noted L4-S1. Severe ASD noted L3-4 and L2-3 with disc collapse, severe central and b/l foraminal stenosis, spondylosis, facet hypertrophy and ligamental hypertrophy which correlate with pt symptoms. Segmental flattening of lumbar lordosis due to these changes at these levels. No fracture noted No Lesions noted. On physical exam, Ms. Lakhani demonstrates restricted lumbar ROM with bilateral lower extremity radiculopathy and weakness. Patient demonstrates significantly decreased gait and balanced testing to coorelate with her increased weakness. I have explained to the patient that as their condition progresses it will cause further neurological deficits and eventual paralysis. Based on the patients imaging, physical exam, and the rapid progression and disabling nature of their symptoms, at this time I recommend surgery in the form or a: revision L2-Pelvis decompression and fusion (75597, 33688, 86009, 59912, 32283, 49698, 96854, 81060). I discussed the risk and benefits of this procedure at length with Ms. Lakhani. The patient agreed to considered pursuing the procedure abovementioned. Prior to surgery, she should follow up with her PCP (Cardio, ID, IM etc) for clearance. Questions were invited and answered, and the patient wishes to proceed as outlined below. Currently, I am recommendin.revision L2-Pelvis decompression and fusion (67148, 33834, 62474, 62081, 40859, 67015, 03074, 19886) 2.Follow up with PCP for surgical clearance 3.Review of surgical risks and benefits as well as an educational packet on the proposed surgical procedure. Risks: All surgical procedures come with inherent risks, including those related to positioning, anesthesia, intraoperative findings, and postoperative complications. It is important to understand that surgery does not come with any guarantee of a successful outcome as complications and adverse events are always possible. The patient was given a handout in office today discussing the surgical procedure and risks associated with the intervention, both of which were discussed with the patient. These risks include but are not limited to the following: * Experiencing same, different or even worse symptoms in back, neck, arms, or legs compared to before surgery. Requiring further surgery or other forms of treatment presently or at some time in the future at same or other levels of the intended spine surgery. On an extreme but fortunately relatively rare basis severe complication such as blindness, stroke, heart attack, temporary and/or permanent nerve injury, paralysis, coma, or may occur, sometimes without known explanation. Surgical complications may include but are not limited to risk of infection, fluid accumulation in the surgical dissection site, including a seroma or hematoma, that requires additional surgery, wound drainage, bleeding, new numbness or weakness, vision changes/loss, spinal fluid leakage, non-healing and/or infected incision, headaches, difficulty or inability to swallow, hoarseness, hemopneumothorax, pneumothorax, impotence, retrograde ejaculation, vaginal dryness; injury to nerves, spinal cord, blood vessels, lymphatics or other vital organs (i.e., bowel injury, injury to the great vessels); heterotopic bone formation; complications related to the hardware such as screws, rods, cages including misplaced hardware, device failure, instrumentation at the wrong spine level, hardware fracture/breakage, or hardware loosening; vertebral failure of the spinal column above or below the newly placed hardware; retained surgical instrumentations or devices and the need for further surgery. * Medical risks of the planned spine surgery include but are not limited to generalized Infections to the whole body or local areas outside of the surgical site (sepsis), heart attack, bleeding, anaphylaxis, meningitis, seizure, epilepsy, hearing loss, burn ayon, laceration of the head or other areas of the body, bruising, hypersensitivity of the skin, bladder over distension; allergic reaction; shoulder injury related to positioning; fat, blood and air clots to other areas of the body like heart, lungs, brain; failure of internal organs such as lungs, kidneys, liver and excessive bleeding. If blood transfusions are necessary, note that transfusions may cause intolerance reactions such as anaphylaxis or other complex reactions. Despite best efforts, the results of spine surgery might not heal in terms of bone, soft tissues such as skin, fascia, ligaments, and joints. Additionally, in order to achieve best possible results, spine surgery may be carried out beyond the initially planned levels and involve decompression, fusion including insertion of hardware at levels other than the original intended area of surgical interest change some portions of the procedure in order to ensure the best possible outcomes. With spine surgery and spinal fusion, there are different off label uses of instrumentation (devices, implants and hardware) as well as biological substances (bone morphogenic proteins, demineralized bone matrix) as well as using extra bone from allograft sources (i.e. cadaver bone) or autograft (iliac crest bone, ribs, or the spine itself). The patient has been given information about these practices and their inherent risks and benefits. [facility] is an educational center that serves as a training facility for neurosurgical and orthopedic [employer] and Nursing students. Physician assistants are medically trained surgical providers who function in the outpatient, inpatient, and operating room setting under the direct supervision of the attending surgeon. [facility] has multiple operating rooms with single and overlapping rooms running daily. They currently function under the required guidelines as produced by the [facility] Finance Committee with regards to the overlapping rooms and will continue to comply with changes to this policy as they occur. The requirements include and are complied with as follows: (1) the critical portions of the overlapping rooms will not occur at the same time, (2) the attending physician will be physically present during the critical portions of the procedure and immediately available during the entire case, and (3) a back-up attending is designated should the primary attending not be immediately available. The patient has had a chance to review all the listed information, has been given print outs detailing this information, and has had all his/her questions answered to their satisfaction. It was my pleasure to have seen and examined Ms. Lakhani. In our visit today we have had a chance to go over my understanding of our patient's current condition, the natural course history without intervention and various interventional options. Questions were invited and answered, and the patient wishes to proceed as outlined above. I have seen and examined the patient for 25 minutes and we have spent more than 50% of the time in repeat and detailed counseling about the patient's condition, its natural course history with out and as much as can be predicted with surgery and re-review of various surgical treatment options. In conclusion, Ms. Lakhani requested we proceed with the above suggested surgery and are willing to accept risks and limitations of the suggested surgery as nature of the disease process and our best attempts at treatment for the condition. Thank you again for allowing us to be part of your patient's care. Please don't hesitate to contact me if you have any further questions. Signed and authenticated by: [employer] P:\\\\ppart\\\\Files\\\\[id number]\\\\[id number]\\\\[id number]\\\\[id number]\\\\[id number]\\\\[id number]\\\\[id number]\\\\[id number]\\\\ [id number]\\\\[id number]\\\\[id number]\\\\[id number]\\\\[id number]\\\\[id number]\\\\[id number]\\\\[id number]\\\\[id number] \\[id number].PNG \\d Ren[facility] Complex [facility] Minimally Invasive Spine Surgery [address], [address] [address] Past Medical History Past Medical History: Asthma History of Any Multi-Drug Resistant Organisms: None Reported Past Surgical History: Back Surgery, Bowel Resection, Hysterectomy Additional Past Surgical History / Comment(s): Perforated gastric ulcer. Cer vical surgery. Past Anesthesia/Blood Transfusion Reactions: Postoperative Nausea & Vomiting (PONV) Past Psychological History: Anxiety - Past Family History Brother(s) Family Medical History: Cancer Additional Family Medical History / Comment(s): Pancreatic cancer Medications and Allergies Home Medications Medication Instructions Recorded Confirmed Type Albuterol Inhaler [Ventolin Hfa 2 puff INHALATION RT-QID PRN 03/10/20 03/11/20 History Inhaler] Albuterol Nebulized [Ventolin 2.5 mg INHALATION Q4-6H PRN 03/10/20 03/11/20 History Nebulized] Fluticasone Propion/Salmeterol 1 inhalation PO BID 03/10/20 03/11/20 History [Advair 250-50 Diskus] traMADol HCL [Ultram] 50 mg PO QID PRN 03/10/20 03/11/20 History Apixaban [Eliquis] 2.5 mg PO BID #60 tab 03/12/20 Rx traMADol HCL [Conzip] 100 mg PO Q6HR PRN #28 cap 06/17/20 Rx Allergies Allergy/AdvReac Type Severity Reaction Status Date / Time NSAIDS (Non-Steroidal Allergy Unknown Verified 03/10/20 12:26 Anti-Inflamma Penicillins Allergy Unknown Verified 03/10/20 12:26 adhesive tape AdvReac "took skin Verified 03/10/20 12:26 off" Physical Examination Osteopathic Statement: *. No significant issues noted on an osteopathic structural exam other than those noted in the History and Physical/Consult.
[2022-06-03 15:01] VITALS: BMI 29.2
[~2022-06-08 05:47] MED LIST changes: -ACETAMINOPHEN TAB 500 MG TAB PO ONE; +ACETAMINOPHEN TAB 500 MG TAB PO PRN; -CLINDAMYCIN 900 MG in DEXTROSE 5% IN WATER 50 ML IVPB ONE; -DEXAMETHASONE SOD PHOSPHATE 10 MG/ML 1 ML VIAL IV ONE; +GABAPENTIN 300 MG CAP PO PRN; -LIDOCAINE 1% (10MG/ML) FOR IV START INTRADERMA PRN; -ONDANSETRON 4 MG/2 ML VIAL IVP ONE; +ONDANSETRON 4 MG/2 ML VIAL IVP PRN; -ROPIVACAINE 246.25 MG, EPINEPHrine 0.5 MG, KETOROLAC 30 MG, cloNIDine HCL/PF 80 MCG, WA... MISCELLANE ONE; -SCOPOLAMINE 1.5MG/72HR PATCH TRANSDERM ONE; -TRANEXAMIC ACID 1,000 MG in SODIUM CHLORIDE 0.9% 100 ML IVPB ONE; +TRANEXAMIC ACID IN NACL,ISO-OS 1,000 MG in SALINE 1 100ML.BAG IVPB PRN
[2022-06-08] MEDS ORDERED: LIDOCAINE 1% (10MG/ML) FOR IV START INTRADERMA PRN (06:07)
[2022-06-08] MEDS ORDERED: ONDANSETRON 4 MG/2 ML VIAL IVP ONE (06:07)
[2022-06-08] MEDS ORDERED: DEXAMETHASONE SOD PHOSPHATE 4 MG/ML 1 ML VIAL IV ONE (06:07)
[2022-06-08] MEDS ORDERED: LACTATED RINGERS 1,000 ML IV ONE ×4 (06:26→11:51)
[2022-06-08] MEDS ORDERED: MIDAZOLAM 2 MG/2 ML VIAL IVP ONE (06:50)
[2022-06-08] MEDS ORDERED: HYDROmorphone 0.5 MG/0.5 ML SYRINGE IVP PRN (07:00)
[2022-06-08] MEDS ORDERED: fentaNYL (PF) 50 MCG/ML 2 ML AMP ONE (07:25)
[2022-06-08] MEDS ORDERED: HYDROmorphone (PF) 1 MG/ML ONE (07:25)
[2022-06-08] MEDS ORDERED: DEXMEDETOMIDINE 200 MCG/2 ML VIAL IV ONE (07:25)
[2022-06-08] MEDS ORDERED: LIDOCAINE 2% INJ 20 MG/ML (2 ML VIAL) ONE (07:25)
[2022-06-08] MEDS ORDERED: SODIUM CHLORIDE 0.9% 100 ML BAG ONE (07:25)
[2022-06-08] MEDS ORDERED: ROCURONIUM 10 MG/ML (5 ML VIAL) IV ONE (07:25)
[2022-06-08] MEDS ORDERED: ceFAZolin 1,000 MG VIAL ONE (07:25)
[2022-06-08] MEDS ORDERED: SUCCINYLCHOLINE CHLORIDE 200 MG/10 ML VIAL IV ONE (07:25)
[2022-06-08] MEDS ORDERED: KETAMINE 10 MG/ML 20 ML VIAL ONE (07:25)
[2022-06-08] MEDS ORDERED: GLYCOPYRROLATE 0.2 MG/ML 2 ML VIAL ONE (07:25)
[2022-06-08] MEDS ORDERED: ONDANSETRON 4 MG/2 ML VIAL ONE (07:25)
[2022-06-08] MEDS ORDERED: ALBUMIN HUMAN 5% (12.5gm) 250 ML BOTTLE IVPB ONE (07:25)
[2022-06-08] MEDS ORDERED: PROPOFOL 10 MG/ML 20 ML VIAL IV ONE (07:25)
[2022-06-08] MEDS ORDERED: TRANEXAMIC ACID IN NACL,ISO-OS 1,000 MG in SALINE 1 100ML.BAG IVPB ONE (08:30)
[2022-06-08] MEDS ORDERED: BUPIVACAINE (PF) 0.25% 30 ML VIAL SQ ONE (08:32)
[2022-06-08] MEDS ORDERED: GELATIN SPONGE,ABSORB (LARGE) 1 EACH SPONGE TOPICAL ONE (08:32)
[2022-06-08] MEDS ORDERED: THROMBIN (BOVINE) 5,000 UNIT VIAL TOPICAL ONE (08:32)
[2022-06-08] MEDS ORDERED: ceFAZolin 3,000 MG in SODIUM CHLORIDE 0.9% IRRIGATIO 3,000 ML IRRIGATION ONE (08:33)
[2022-06-08] MEDS ORDERED: GENTAMICIN 40 MG/ML 2 ML VIAL IRRIGATION ONE (08:33)
[2022-06-08 10:01] LABS: Anisocytosis Slight; HCT 28.1 % (34.0-46.0); HGB 8.4 gm/dL (11.4-16.0); Hypochromasia Marked; MCH 22.9 pg (25.0-35.0); MCHC 29.8 g/dL (31.0-37.0); MCV 76.8 fL (80.0-100.0); Mean Platelet Volume 7.4; Microcytosis Moderate; Platelet Count 403 k/uL (150-450); RBC 3.66 m/uL (3.80-5.40); RDW 19.3 % (11.5-15.5); WBC 6.7 k/uL (3.8-10.6)
[2022-06-08] MEDS ORDERED: SENNOSIDES-DOCUSATE SODIUM 1 EACH TAB PO PRN (12:31)
[2022-06-08] MEDS ORDERED: CYCLOBENZAPRINE 5 MG TAB PO PRN (12:31)
[2022-06-08] MEDS ORDERED: HYDROcodone/APAP 5-325MG 1 EACH TAB PO PRN (12:31)
[2022-06-08] MEDS ORDERED: HYDROcodone/APAP 10-325MG 1 EACH TAB PO PRN (12:31)
[2022-06-08] MEDS ORDERED: VANCOMYCIN 1,000 MG VIAL MISCELLANE ONE (12:39)
--- NOTE | 2022-06-08 13:06 | FL ---
EXAMINATION TYPE: FL guidance operating room DATE OF EXAM: 06/08/2022 HISTORY: Fluoroscopy time 1 minute and 16 seconds of fluoroscopy provided. IMPRESSION: 1. Fluoroscopy time.
[2022-06-08] MEDS: fentaNYL (PF) 50 MCG/ML 2 ML AMP IV PRN ×2 (14:02→14:26)
--- NOTE | 2022-06-08 14:46 | P.OP ---
Date of Procedure: 06/08/22 Preoperative Diagnosis: 1. Psuedoarthrosis L4-S1 2. 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 Severe stenosis L2-4 4. Neurogenic claudication 5. Mechanical low back pain Postoperative Diagnosis: 1. Psuedoarthrosis L4-S1 2. 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 Severe stenosis L2-4 4. Neurogenic claudication 5. Mechanical low back pain Procedure(s) Performed: Revision posterior midline exposure 1. L2-3 posteriolateral and interbody fusion (91655) 2. L3-4 Posteriolateral and interbody fusion (31864) 3. Exploration of fusion L4-S1 (95402) 4. Removal of segmental instrumentation L4-S1 (16647) 5. Revision posteriolateral instrumented fusion L4-S1 (26512, 69877) 6. Segmental instrumentation L2-S1 (53408) 7. Pelvic fixation, attachment of the construct to the bony pelvis other than s acrum (41944) 8. Insertion of biomechanical device L2-3 and L3-4 (89140c5) 9. L2-3 and L3-4 bilateral complete laminectomy, complete facetectomy and foraminotomy for extra dural decompression more than that which was required for cage placement alone (76972, 32170) 10. Use of [employer] 3D navigation for screw placement (03980) 11. Use of intraoperative neuromonitoring 12. Interpretation of intraoperative flouroscopy <1hr (57199) Implants: -Globus Creo Headless screw and mayra system -x2 crosslinks Globus -Amplify Dual X x2 cages 9-11 and 8-10 mm 8 deg and 0 deg lordotic -I factor synthetic -Autograft -Allograft Anesthesia: GETA Surgeon: Renan Villarreal Grinder Set Up Operator #1: Asher Lawson (Was present and assisted in all aspects of the case incliuding positionoing, exposure, hardware removal, replacement of hardware, decompression, fusion, instrumentation, closure and dressing placement. ) Estimated Blood Loss (ml): 450 IV fluids (ml): 1,300 Urine output (ml): 250 Pathology: none sent Condition: stable Disposition: PACU Indications for Procedure: 61 yo female with hx of L4-S1 fusion in the past presents with increased back pain as well as difficulty with ambulation, new issues of bladder control problems as well as numbness/tingling in legs which feel heavy and hard to move. She states difficulty with her day to day activities as well and states she is ready for her back to be fixed. She denies any new symptoms she states she is ready and willing to proceed with the procedure. She has gone through multiple different conservative measures including physical therapy occupational therapy help home exercise program pain medications itbe-jwd-infrqys medications prescription medications steroids injections both of which have alleviated her symptoms she elects for surgical procedure. Description of Procedure: The patient was seen and examined in the preoperative area. All preoperative protocols were followed. Informed consent was obtained risks and benefits of the procedure were discussed at length. Risks including bleeding infection damage to the surrounding tissue and risk of reoperation were discussed with the patient. Risk of anesthesia up to and including was a discussed with the patient. These are outlined in the risk review. They were willing to accept these risks and all of the risks of surgery. The patient was given a weight- based dose of antibiotics in the form of 2 g Ancef. The patient was seen and evaluated by the anesthesia team who deemed them fit for surgery. The site was marked, the patient was willing to proceed with the procedure. The patient was transferred to the operative suite by the Department of anesthesia. They were then drifted off to sleep by the department anesthesia and GETA was performed. The patient tolerated this well. Perales catheter was placed by nursing staff, atraumatically. Once confirmation of lines and ventilation the patient was transferred to a prone Josh table very carefully. All bony prominences including wrists, elbows, axilla, chest, hips, and thighs, and feet were padded very well. Special attention was paid to the genitalia and these were padded accordingly. SCDs were placed on bilateral lower extremities and were connected. Arms were well padded and placed on arm boards up and out in the 90/90 position. Once in position, again we confirmed good ventilation capabilities and that lines were running appropriately. The patient's lumbar spine was then exposed. 1010s were placed outlining the incision site. Standard alcohol was used to clean the incision site and allowed to dry. C-arm was used to biomark the patient and confirm level for incision which was marked with a skin marker. Operative briefing was performed with all teams and everyone in agreement to proceed. The patient was then prepped and draped in a normal sterile fashion. Timeout was then performed and all parties were in agreement with the procedure to be performed. Midline skin incision was made over the previously marked area and dissection taken down through the scar tissue until fascia was identified. Fat dorsal proximally as well. When dissected through the fascia subperiosteally over the lamina of L2-3 and 4. There is exuberant scar tissue over the previously decompressed area from L3 through S1. Hardware was exposed bilaterally and was investigated and explored. Once the hardware had been exposed thoroughly set screws removed and rods were removed we then proceeded with removal of hardware L4 screws bilaterally were fairly solid L5 screws bilaterally were very loose. S1 screws were also loose bilaterally. There is some mobility between L4 to L5 were noted. All screws were removed we debrided the area and removed any scar tissue with a Kerrison rongeur as well as Bovie. Once screws removed and this was debrided we irrigated the area thoroughly with antibiotic saline solution. We then palpated all holes with a high-speed bur and all holes within the 4 gage of pedicles. We then proceeded with replacement of screws. Using [employer] 3-D navigation we obtain imaging and then placed screws into L to L3 which were virgin levels using a high-speed bur to create a highway patrol pilot hole followed by a pedicle finder followed by the screw. Lateral imaging confirmed good placement of the screws as well as AP. We then replaced screws from L4 down to S1 into their previous cord worse. Screws were upsized by 1 size at L4 to sizes of L5 and one size at S1. The previously proceeded with placement of pelvic screws. High-speed bur was used to identify starting point and it was advanced. Lateral fluoroscopy confirmed good position on imaging and guidance. We then placed a spatula pedicle finder into this hole and advanced it. Once it was in good position we took an AP film which confirmed good placement of the pedicle finder and a 30 tilted view caudally and cranially confirmed within the teardrop. Once a good position of the pedicle was removed the first few threads were tapped and then the screw was selected an 8.5x80 millimeter screw was selected and placed atraumatically. We repeated this on the opposite side using the same steps. An 8.5x80mm screw was also placed on the side. We will screws were in position the patient worn off other sedation paralysis and so screws were tested at this time and all screws tested adequately neuro monitoring. After this we turned our attention to the decompression and L3 4 and L4 5 and performed bilateral laminectomy complete facetectomy and foraminotomies at both levels using high-speed bur inverted L-shaped cuts were made to remove the superior portion and the intra-articular facet followed by C-shaped cuts or W to counts down low to remove the inferior articulating facets. This again was accomplished with a high-speed bur as well as Kerrison rongeur. Bilateral foraminotomies were performed with Kerrison rongeur. Once extradural neural elements were completely decompressed a distractor was placed on the screws on the left-hand side at L3 L4 due to the patient's deformity. Osteotome was then advanced into the disc space under lateral fluoroscopic guidance while protecting the neural elements. Ask access in this area. Then performed sequential shaving to remove disc as well as down-biting curet and pituitary. Once a complete discectomy was then performed at L3-L4 the cage was selected. A mixture of some benefit autograft and allograft placed anterior disc space and impacted into place with the blunt trial. Then while carefully protecting the neural elements peek cage was selected and impacted into place was then expanded laterally and superiorly until it locked into position. Once in position the locking screw was placed. The cages then back filled with DBM and synthetic. We then irrigated out the space. Distractor was removed from the screw heads and replaced on the L to L3 level on the left-hand side. We then completed our foraminotomies and decompression at this level with Kerrison rongeurs. Excess Ti strength on the left-hand side for meticulous hemostasis. No elements were carefully retracted. We then entered the disc space with a osteotome under lateral fluoroscopic guidance. Sequential shaving was then performed at this level until the desired height was accomplished. We then selected a cage as well. We performed a complete discectomy here using down-biting curet to work across midline to remove any further disc material. We then anterior to the cage within the disc space packed allograft autograft and synthetic this is then packed into place using a blunt trial. We then turned attention to cage placement. Neural elements were carefully protected the cage was then impacted into place under lateral fluoroscopic guidance and was in good position is not expanded and locked into position with a locking screw. The cages then backfilled with DBM and synthetic. The area was then copiously irrigated with normal sterile saline and meticulous hemostasis was performed. We then placed all the heads on the screws and confirmed they were in good position and locked. We then selected a mayra and padded accordingly. The mayra was then placed into the pelvic screw first which was then locked into position we then placed the remainder of the mayra into the screw heads and reduce them using reducers carefully. We then placed set screws bilaterally. Once its usual place they were final tightened using a final muffler hand and counter torqued. 2 cross-links were then selected and were placed. Posterior lateral gutters and TPs were decorticated using high-speed bur. Again meticulous hemostasis performed. We then copiously irrigated the wound with 3 L of antibiotic saline solution followed by 3 more liters of a different antibiotic saline solution followed by a 3 L solution of normal sterile saline. Then placed Surgicel over the dura. We then placed a mixture of synthetic allograft and autograft in the posterior lateral gutters and this was impacted into place. Once this was accomplished with then placed a deep drain 2 g of vancomycin powder was placed in the wound. We then proceeded with layered closure for some fascial layer was closed with #1 PDS in frirfa-ga-hasor fashion. Deep subcu tissues closed with 0 PDS followed by superficial subcu tissue was closed with 2-0 Vicryl skin was then closed with skin stapler approximated very well. Dressing was cemented into position. We then cleaned the wound and dressed it sterilely with an operative foam dressing for a 4 and Tegaderm. The patient was transferred back to their hospital bed atraumatically. Drain continued to hold suction and were in good position. Patient was then awakened and extubated by the department of anesthesia having tolerated the procedure very well with no complications. They were transferred to the postoperative care unit in stable condition.
[2022-06-08] MEDS ORDERED: LABETALOL SYRINGE 5 MG/ML IVP ONE ×3 (14:50→15:32)
[2022-06-08] MEDS: HYDROmorphone 1 MG/ML 1 ML SYRINGE IVP PRN ×3 (16:09→23:40)
[2022-06-08] MEDS: LACTATED RINGERS 1,000 ML IV SCH (16:23)
[2022-06-08] MEDS: GABAPENTIN 300 MG CAP PO SCH ×2 (16:52→22:54)
[2022-06-08] MEDS ORDERED: hydrALAZINE HCL 25 MG TAB PO PRN (18:22)
[2022-06-08] MEDS: ACETAMINOPHEN TAB 325 MG TAB PO SCH ×3 (18:22→23:37)
--- NOTE | 2022-06-08 18:30 | P.CONS ---
History of Present Illness - Reason for Consult Consult date: 06/08/22 - History of Present Illness Patient is a 61-year-old female with PMH of GERD, COPD/asthma, anxiety presents to [facility] for elective surgery. She underwent lumbar fusion and laminectomy under Dr. Villarreal. [facility] has been consulted for medical management of this patient. Patient was seen and examined after her surgical procedure. She reports pain in her lower back but appears to be groggy and sleepy. She is however easily arousable. She denies any other complaints. She denies any headache, lower extremity edema, fever or chills, cough, chest pain, shortness of breath, palpitations, changes in urination or bowel habits. No changes in appetite or weight. She denies any dizziness, numbness/weakness/tingling of the extremities. Reports from nursing stating that her BP is elevated at 180/103. Review of systems is performed and is negative except above. General: non toxic, no distress, appears at stated age, sleepy and groggy but easily arousable Derm: warm, dry Head: atraumatic, normocephalic, symmetric Eyes: EOMI, no lid lag, anicteric sclera Mouth: no lip lesion, mucus membranes moist Cardiovascular: S1S2 reg, no murmur Lungs: CTA bilateral, no rhonchi, no rales , no accessory muscle use Abdominal: soft, nontender to palpation Ext: no gross muscle atrophy, no edema, no contractures Neuro: no focal neuro deficits Psych: Alert, oriented, appropriate affect #Elevated blood pressure without history of hypertension #Acute blood loss anemia #COPD not in exacerbation #GERD #Anxiety disorder Patient has elevated BP of 180/103. She is not on any antihypertensive medication. She'll be started on hydralazine 25 mg by mouth 4 times a day as needed for SBP greater than 180 or DVT greater than 100. Her vital signs are be monitored and medication adjusted if necessary. Patient with hemoglobin of 8.4 with MCV of 76.8. Her hemoglobin on 06/02/2022 was 10.5. This is likely expected blood loss from surgery. CBC will be repeated tomorrow morning. Continue albuterol neb as needed for shortness of breath and wheezing. Restart omeprazole. Restarted Wellbutrin. DVT prophylaxis: [SCDs] Discussed with: [Patient, nursing] Anticipated discharge: [1-2 days] Anticipated discharge place: [Home versus nerve] A total of [30] minutes was spent on the care of this complex patient more than 50% of the time was spent in counseling and care coordination. Thank you for this consultation. Please call [facility] with additional questions or concerns. Past Medical History Past Medical History: Asthma, Fibromyalgia, GERD/Reflux, Osteoarthritis (OA) Additional Past Medical History / Comment(s): hiatal hernia, hx perforated ulcer, IBS., neuropathy feet, psoratic arthritis, hx anemia., back pain., vertigo History of Any Multi-Drug Resistant Organisms: None Reported Past Surgical History: Back Surgery, Bowel Resection, Hysterectomy Additional Past Surgical History / Comment(s): Perforated gastric ulcer. Cervical surgery., gerd surgery with band (Dr Hernandez) Past Anesthesia/Blood Transfusion Reactions: Motion Sickness, Postoperative Nausea & Vomiting (PONV) Additional Past Anesthesia/Blood Transfusion Reaction / Comm: vertigo. hx of bloodtransfusions with no reaction. Past Psychological History: Anxiety, Depression Smoking Status: Former smoker Past Alcohol Use History: None Reported Additional Past Alcohol Use History / Comment(s): Smoked approx. 10 years , casual smoker, quit 1984 Past Drug Use History: Marijuana Additional Drug Use History / Comment(s): states medical marijuana, edibles or vapes. - Past Family History Brother(s) Family Medical History: Cancer Additional Family Medical History / Comment(s): Pancreatic cancer Medications and Allergies Home Medications Medication Instructions Recorded Confirmed Type Albuterol Inhaler [Ventolin Hfa 2 puff INHALATION RT-QID PRN 03/10/20 06/03/22 History Inhaler] Albuterol Nebulized [Ventolin 2.5 mg INHALATION DIRECTED PRN 03/10/20 06/03/22 History Nebulized] Fluticasone Propion/Salmeterol 1 inhalation PO BID 03/10/20 06/03/22 History [Advair 250-50 Diskus] Cyclobenzaprine [Flexeril] 10 mg PO QID PRN 06/03/22 06/03/22 History Dramamine Otc (Unknown Dose) 1 tab PO DIRECTED PRN 06/03/22 History Fluticasone Nasal Jackson [Flonase 1 spray EA NOSTRIL DAILY PRN 06/03/22 06/03/22 History Nasal Jackson] Ketorolac Tromethamine 1 mg PO Q4HR PRN 06/03/22 History Omeprazole [PriLOSEC] 20 mg PO DAILY 06/03/22 06/03/22 History buPROPion SR [Wellbutrin SR] 150 mg PO DAILY 06/03/22 06/03/22 History Allergies Allergy/AdvReac Type Severity Reaction Status Date / Time amoxicillin Allergy Unknown Rash/Hives Verified 06/03/22 14:15 NSAIDS (Non-Steroidal Allergy stomach Verified 06/03/22 14:17 Anti-Inflamma ache adhesive tape AdvReac "took skin Verified 06/03/22 14:16 off" Physical Exam Vitals: Vital Signs Temp Pulse Pulse Resp BP Pulse Ox 06/08/22 17:56 65 17 119/68 94 L 06/08/22 17:52 89 17 122/66 97 06/08/22 17:50 69 17 171/94 94 L 06/08/22 17:49 66 17 154/94 97 06/08/22 17:48 98.7 F 68 17 181/103 99 06/08/22 17:43 68 18 06/08/22 17:39 98.7 F 72 17 179/101 95 06/08/22 15:55 68 18 162/88 95 06/08/22 15:40 70 18 164/95 95 06/08/22 15:25 76 18 189/97 96 06/08/22 15:10 75 16 181/98 94 L 06/08/22 14:55 64 18 194/107 100 06/08/22 14:35 80 18 196/102 100 06/08/22 14:20 79 16 193/102 100 06/08/22 14:05 80 16 158/97 97 06/08/22 13:50 81 16 175/96 98 06/08/22 13:35 80 16 155/94 97 06/08/22 13:21 97 F L 100 12 137/82 100 06/08/22 06:57 86 18 187/98 97 06/08/22 06:25 97.8 F 95 18 189/100 99 Intake and Output 06/08/22 06/08/22 06/08/22 06:59 14:59 22:59 Intake Total 300 2361 Output Total 690 200 Balance 300 1671 -200 Intake: IV 300 2051 Blood Product 310 Rc As-1 Unit 310 [id number] Other 0 Rc As-1 Unit 0 [id number] Output: Urine 290 200 Estimated Blood Loss 400 Other: Voiding Method Indwelling Catheter Weight 71.8 kg Results CBC & Chem 7: 06/08/22 09:50 Labs: Abnormal Lab Results - Last 24 Hours (Table) 06/02/22 06/08/22 Range/Units 09:27 09:50 RBC 3.66 L (3.80-5.40) m/uL Hgb 8.4 L (11.4-16.0) gm/dL Hct 28.1 L (34.0-46.0) % MCV 76.8 L (80.0-100.0) fL MCH 22.9 L (25.0-35.0) pg MCHC 29.8 L (31.0-37.0) g/dL RDW 19.3 H (11.5-15.5) % Crossmatch See Detail
--- NOTE | 2022-06-08 21:10 | CT ---
EXAMINATION TYPE: CT lumbar spine wo con DATE OF EXAM: 06/08/2022 COMPARISON: 03/03/2022 HISTORY: post op sx. L2-Pelvis. CT DLP: 1564.6 mGycm Automated exposure control for dose reduction was used. Images obtained from the level of T10 to assess for vertebra with no contrast. There are posterior skin vicente. There is posterior rods and screws fusing the lumbar spine from the level of S2 and the iliac bones to the L2 level. There is no compression fracture. There is metal ar tifact. There is disc prosthesis at L2-3 and L3-4. There is osteopenia. No lumbar paraspinal mass. Th ere is multilevel laminectomy defect. Sacroiliac joints are intact. There is a large hiatal hernia. N o pathologic fluid collection. There is posterior soft tissue air consistent with the recent surgery. IMPRESSION: Multilevel posterior fusion surgery with revision compared to old exam. No complicating process seen.
[2022-06-08] MEDS ORDERED: MORPHINE SULFATE 2 MG/ML SYRINGE IVP STA (23:23)
[2022-06-08] MEDS: ALBUTEROL NEBULIZED 2.5 MG/3 ML INHALATION PRN (23:28)
[2022-06-08] MEDS ORDERED: ONDANSETRON 4 MG/2 ML VIAL IVP STA (23:31)
[2022-06-09] MEDS: LACTATED RINGERS 1,000 ML IV SCH (00:33)
[2022-06-09] MEDS: HYDROmorphone 1 MG/ML 1 ML SYRINGE IVP PRN ×3 (05:45→23:34)
[2022-06-09] MEDS: ACETAMINOPHEN TAB 325 MG TAB PO SCH ×4 (05:57→23:35)
[2022-06-09] MEDS: ALBUTEROL NEBULIZED 2.5 MG/3 ML INHALATION PRN ×3 (07:54→20:28)
[2022-06-09] MEDS: GABAPENTIN 300 MG CAP PO SCH ×3 (08:46→20:56)
[2022-06-09] MEDS: PANTOPRAZOLE 40 MG TABLET PO SCH (08:46)
[2022-06-09] MEDS: buPROPion XL 150 MG TAB.ER.24H PO SCH (08:46)
--- NOTE | 2022-06-09 08:57 | P.PN ---
Subjective Progress Note Date: 06/09/22 Principal diagnosis: Low back pain, BLE weakness, neurogenic claudication Patient seen and examined at bedside. Patient was lying supine in bed. She s tates her pain is controlled on current regimen. Overall patient has noticed a decrease in her symptoms since procedure. Patient denies any bilateral lower extremity numbness or tingling. She is moving herself in bed. Surgical dressing is clean dry and intact, with Hemovac present and patent. Hemovac is to be at half compression. Informed patient that she would be working with physical therapy today to ambulate within room and to sit in chair. Patient verbalizes understanding. She denies f/c/sob/cp. Objective - Vital Signs Vital signs: Vital Signs Temp 97.4 F L 06/09/22 02:26 Pulse 80 06/09/22 07:54 Resp 18 06/09/22 02:26 BP 152/75 06/09/22 02:26 Pulse Ox 92 L 06/09/22 02:26 FiO2 Intake & Output 06/08/22 06/09/22 06/09/22 18:59 06:59 18:59 Intake Total 2361 Output Total 890 3040 Balance 1471 -3040 Intake: IV 2051 Blood Product 310 Rc As-1 Unit 310 [id number] Other 0 Rc As-1 Unit 0 [id number] Output: Drainage 440 Left Lower Back 440 Urine 490 2600 Estimated Blood Loss 400 Other: Voiding Method Indwelling Catheter Indwelling Catheter - Exam Physical Examination General: The patient is awake and alert, in no acute distress Skin: Skin is warm and dry with no obvious rashes or lesions. Hairy patches absent, no dorsal skin dimples, no cafe au lait spots. Surgical incision to lum bar region. Surgical dressing CDI, hemovac present and patent. Eye: Pupils are equal, round and reactive to light, extra-ocular movements are intact; there is normal conjunctiva bilaterally. Neck: The neck is supple, there is no tenderness and ROM intact. Cardiovascular: There is a regular rate and rhythm. No murmur, rub or gallop is appreciated. Respiratory: Lungs are clear to auscultation, respirations are non-labored, breath sounds are equal. Gastrointestinal: Soft, non-distended, non-tender abdomen . Back: There is no tenderness to palpation in the midline, paralumbar, para thoracic or buttocks region. There is no obvious deformity . Musculoskeletal: ROM limited secondary to pain and stiffness from surgical procedure. Shoulder abduction 5/5, elbow flexors 5/5, wrist dorsiflexors 5/5. finger abductor 5/5, pointing machine operator 5/5, hip flexor 5/5, knee flexor 5/5, ankle dorsiflexor 5/5, ankle plantarflexion 5/5 and extensor hallucis 5/5. Neurological: CN 2-12 intact. There are no obvious motor or sensory deficits. Movement and coordination equal and intact. Sensory exam to light touch intact C5-T1 and intact from L2-S1. Reflexes 2/4 in bilateral upper and lower extremities. Negative Hoffmans, babinski, and clonus signs. Psychiatric: Cooperative, appropriate mood & affect, normal judgment. - Labs CBC & Chem 7: 06/08/22 09:50 Labs: Abnormal Lab Results - Last 24 Hours (Table) 06/02/22 06/08/22 Range/Units 09:27 09:50 RBC 3.66 L (3.80-5.40) m/uL Hgb 8.4 L (11.4-16.0) gm/dL Hct 28.1 L (34.0-46.0) % MCV 76.8 L (80.0-100.0) fL MCH 22.9 L (25.0-35.0) pg MCHC 29.8 L (31.0-37.0) g/dL RDW 19.3 H (11.5-15.5) % Crossmatch See Detail Assessment and Plan Assessment: Post Op Day 1 s/p Revision L2-Pelvis decompression and fusion 1. 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 L2-3 and L3-4 central and foraminal stenosis, severe 3. Neurogenic claudication 4. Mechanical low back pain secondary to the above 5. LE weakness 6. LE radiculopathy Plan: Plan: -Appreciate safety and health consultant and team management. -Activity: Ambulate QID, OOB all meals, up and about, limit lifting bending twisting to less than 5 lbs. Use walker or cane if needed for stability. -Daily PT/OT, increase ambulation strength and balance. -Brace when up and about, not needed in bed or chair -Pain control: Adequate at this time -Meds: reviewed -GI ppx: senna, Miralax -DC lantigua when up and about, bedside commode if needed -DVT PPX: OK to restart Heparin tonight -Hygiene: Shower today. Maintain dressing clean and dry. Meticulous cleaning after BMs away from the incision site -Drains: Maintain for now. DC later today pending out put and PT -Encourage IS 10x/hr -Dispo: Anticipate discharge home tomorrow with homecare *I reviewed and discussed this case with my attending Dr. Villarreal, whom has reviewed this chart and films and is in agreement with assessment and plan of care as outlined above. I have personally seen and examined the patient, performed the documentation and the assessment and plan as written. Number of minutes spent on the visit: 20 minutes.
[2022-06-09 09:12] LABS: Basophils # (A) 0.01 X 10*3/uL (0.00-0.10); Basophils % (A) 0.1 %; Eosinophils # (A) 0 X 10*3/uL (0.04-0.35); Eosinophils % (A) 0 %; HCT 31.2 % (37.2-46.3); HGB 9.4 g/dL (12.0-15.0); Immature Grans, Automated 0.5 %; Lymphocytes # (A) 0.88 X 10*3/uL (0.90-5.00); Lymphocytes % (A) 6.8 %; MCHC 30.1 g/dL (32.0-37.0); MCV 76.3 fL (80.0-97.0); Mean Platelet Volume 9.6 fL (9.5-12.2); Monocytes # (A) 1.09 X 10*3/uL (0.20-1.00); Monocytes % (A) 8.5 %; NRBC Per 100 WBC 0 /100 WBCS (0.0-0.0); Neutrophils % (A) 84.1 %; Platelet Count 420 X 10*3/uL (140-440); RBC 4.09 X 10*6/uL (4.10-5.20); RDW 20.5 % (11.5-14.5); WBC 12.85 X 10*3/uL (4.50-10.00)
[2022-06-09] MEDS ORDERED: VANCOMYCIN IV PER PHARMACY 1 EACH MISC MISCELLANE PRN (10:59)
[2022-06-09] MEDS: VANCOMYCIN 1,250 MG in SODIUM CHLORIDE 0.9% 250 ML IVPB SCH ×2 (11:55→23:34)
[2022-06-09] MEDS: HYDROmorphone 0.5 MG/0.5 ML SYRINGE IVP PRN ×2 (11:59→17:37)
[2022-06-09] MEDS: ONDANSETRON 4 MG/2 ML VIAL IVP PRN (12:19)
--- NOTE | 2022-06-09 15:18 | P.PN ---
Subjective Progress Note Date: 06/09/22 Patient was seen and examined. No acute events overnight. Patient reports continued pain in her lower back at the site of surgery. She has been able to ambulate. She is more verbal today and less drowsy. General: non toxic, no distress, appears at stated age Derm: warm, dry Head: atraumatic, normocephalic, symmetric Eyes: EOMI, no lid lag, anicteric sclera Mouth: no lip lesion, mucus membranes moist Cardiovascular: S1S2 reg, no murmur Lungs: CTA bilateral, no rhonchi, no rales , no accessory muscle use Abdominal: soft, nontender to palpation Ext: no gross muscle atrophy, no edema, no contractures Neuro: no focal neuro deficits Psych: Alert, oriented, appropriate affect #Elevated blood pressure without history of hypertension #Leukocytosis #Acute blood loss anemia #COPD not in exacerbation #GERD #Anxiety disorder Patient has elevated BP of 142/74. She is not on any antihypertensive me dication. She'll be started on hydralazine 25 mg by mouth 4 times a day as needed for SBP greater than 180 or DBP greater than 100. Her vital signs are be monitored and medication adjusted if necessary. Likely related to Decadron and stress from surgical procedure. No signs of active infection. Continue to monitor. Patient with hemoglobin of 9.4, improved. Her hemoglobin on 06/02/2022 was 1 0.5. This is likely expected blood loss from surgery. Continue albuterol neb as needed for shortness of breath and wheezing. Restart omeprazole. Restarted Wellbutrin. DVT prophylaxis: [SCDs] Discussed with: [Patient, nursing] Anticipated discharge: [1-2 days] Anticipated discharge place: [Home] Thank you for this consultation. Please call sound physicians with additional questions or concerns. Objective - Vital Signs Vital signs: Vital Signs Temp 98.0 F 06/09/22 08:00 Pulse 86 06/09/22 11:34 Resp 16 06/09/22 08:00 BP 142/74 06/09/22 08:00 Pulse Ox 94 L 06/09/22 08:00 FiO2 Intake & Output 06/08/22 06/09/22 06/09/22 18:59 06:59 18:59 Intake Total 2361 370 Output Total 890 3040 Balance 1471 -3040 370 Intake: IV 2050 Intake, IV Titration 250 Amount Vancomycin 1,250 mg In 250 Sodium Chloride 0.9% 250 ml @ 125 mls/hr IVPB Q12H [facility] Rx#:[id number] Oral 120 Blood Product 310 Rc As-1 Unit 310 [id number] Other 0 Rc As-1 Unit 0 [id number] Output: Drainage 440 Left Lower Back 440 Urine 490 2600 Estimated Blood Loss 400 Other: Voiding Method Indwelling Catheter Indwelling Catheter Indwelling Catheter - Labs CBC & Chem 7: 06/09/22 05:32 Labs: Abnormal Lab Results - Last 24 Hours (Table) 06/02/22 06/09/22 Range/Units 09:27 05:32 WBC 12.85 H (4.50-10.00) X 10*3/uL RBC 4.09 L (4.10-5.20) X 10*6/uL Hgb 9.4 L (12.0-15.0) g/dL Hct 31.2 L (37.2-46.3) % MCV 76.3 L (80.0-97.0) fL MCH 23.0 L (27.0-32.0) pg MCHC 30.1 L (32.0-37.0) g/dL RDW 20.5 H (11.5-14.5) % Immature Gran # 0.07 H (0.00-0.04) X 10*3/uL Neutrophils # 10.80 H (1.80-7.70) X 10*3/uL Lymphocytes # 0.88 L (0.90-5.00) X 10*3/uL Monocytes # 1.09 H (0.20-1.00) X 10*3/uL Eosinophils # 0 L (0.04-0.35) X 10*3/uL Crossmatch See Detail
[2022-06-10] MEDS: ONDANSETRON 4 MG/2 ML VIAL IVP PRN (05:25)
[2022-06-10] MEDS: ACETAMINOPHEN TAB 325 MG TAB PO SCH ×4 (05:26→22:47)
[2022-06-10] MEDS: HYDROmorphone 0.5 MG/0.5 ML SYRINGE IVP PRN ×3 (05:26→16:29)
[2022-06-10] MEDS: ALBUTEROL NEBULIZED 2.5 MG/3 ML INHALATION PRN ×3 (08:04→20:50)
[2022-06-10] MEDS: PANTOPRAZOLE 40 MG TABLET PO SCH (09:00)
[2022-06-10] MEDS: GABAPENTIN 300 MG CAP PO SCH ×3 (09:00→21:58)
[2022-06-10] MEDS: buPROPion XL 150 MG TAB.ER.24H PO SCH (09:00)
[2022-06-10 09:21] LABS: African American GFR (CKD) 115.6 (60.0-200.0); Non-African American GFR(CKD) 99.8 (60.0-200.0)
--- NOTE | 2022-06-10 10:01 | P.PN ---
Subjective Progress Note Date: 06/10/22 Principal diagnosis: Low back pain, BLE weakness, neurogenic claudication Patient seen and examined at bedside. She states her pain is controlled on cu rrent regimen. Patient continues to report improved symptoms since surgery. Patient denies any bilateral lower extremity numbness or tingling. She is moving herself in bed. Surgical dressing is clean dry and intact, with Hemovac present and patent. Hemovac is to be at half compression. Informed patient that she would be working with physical therapy today to ambulate within room and to sit in chair. Patient verbalizes understanding. She denies f/c/sob/cp. Objective - Vital Signs Vital signs: Vital Signs Temp 98.1 F 06/10/22 07:34 Pulse 98 06/10/22 08:14 Resp 17 06/10/22 07:34 BP 144/77 06/10/22 07:34 Pulse Ox 96 06/10/22 08:04 FiO2 Intake & Output 06/09/22 06/10/22 06/10/22 18:59 06:59 18:59 Intake Total 610 480 Output Total 800 170 100 Balance -190 -170 380 Intake: Intake, IV Titration 250 Amount Vancomycin 1,250 mg In 250 Sodium Chloride 0.9% 250 ml @ 125 mls/hr IVPB Q12H [facility] Rx#:[id number] Oral 360 480 Output: Drainage 200 170 100 Left Lower Back 200 170 100 Urine 600 Other: Voiding Method Indwelling Catheter Toilet # Voids 1 1 - Exam Physical Examination General: The patient is awake and alert, in no acute distress Skin: Skin is warm and dry with no obvious rashes or lesions. Hairy patches absent, no dorsal skin dimples, no cafe au lait spots. Surgical incision to lumbar region. Surgical dressing CDI, hemovac present and patent. Eye: Pupils are equal, round and reactive to light, extra-ocular movements are intact; there is normal conjunctiva bilaterally. Neck: The neck is supple, there is no tenderness and ROM intact. Cardiovascular: There is a regular rate and rhythm. No murmur, rub or gallop is appreciated. Respiratory: Lungs are clear to auscultation, respirations are non-labored, breath sounds are equal. Gastrointestinal: Soft, non-distended, non-tender abdomen . Back: There is no tenderness to palpation in the midline, paralumbar, parathoracic or buttocks region. There is no obvious deformity . Musculoskeletal: ROM limited secondary to pain and stiffness from surgical procedure. Shoulder abduction 5/5, elbow flexors 5/5, wrist dorsiflexors 5/5. finger abductor 5/5, hired hand 5/5, hip flexor 5/5, knee flexor 5/5, ankle dorsiflexor 5/5, ankle plantarflexion 5/5 and extensor hallucis 5/5. Neurological: CN 2-12 intact. There are no obvious motor or sensory deficits. Movement and coordination equal and intact. Sensory exam to light touch intact C5-T1 and intact from L2-S1. Reflexes 2/4 in bilateral upper and lower extremities. Negative Hoffmans, babinski, and clonus signs. Psychiatric: Cooperative, appropriate mood & affect, normal judgment. - Labs CBC & Chem 7: 06/09/22 05:32 06/10/22 05:54 Labs: Abnormal Lab Results - Last 24 Hours (Table) 06/02/22 06/09/22 Range/Units 09:27 05:32 WBC 12.85 H (4.50-10.00) X 10*3/uL RBC 4.09 L (4.10-5.20) X 10*6/uL Hgb 9.4 L (12.0-15.0) g/dL Hct 31.2 L (37.2-46.3) % MCV 76.3 L (80.0-97.0) fL MCH 23.0 L (27.0-32.0) pg MCHC 30.1 L (32.0-37.0) g/dL RDW 20.5 H (11.5-14.5) % Immature Gran # 0.07 H (0.00-0.04) X 10*3/uL Neutrophils # 10.80 H (1.80-7.70) X 10*3/uL Lymphocytes # 0.88 L (0.90-5.00) X 10*3/uL Monocytes # 1.09 H (0.20-1.00) X 10*3/uL Eosinophils # 0 L (0.04-0.35) X 10*3/uL Crossmatch See Detail Assessment and Plan Assessment: Post Op Day 2 s/p Revision L2-Pelvis decompression and fusion 1. 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 L2-3 and L3-4 central and foraminal stenosis, severe 3. Neurogenic claudication 4. Mechanical low back pain secondary to the above 5. LE weakness 6. LE radiculopathy Plan: Plan: -Appreciate regulatory affairs consultant and team management. -Activity: Ambulate QID, OOB all meals, up and about, limit lifting bending twisting to less than 5 lbs. Use walker or cane if needed for stability. -Daily PT/OT, increase ambulation strength and balance. -Brace when up and about, not needed in bed or chair -Pain control: Adequate at this time -Meds: reviewed -GI ppx: senna, Miralax -DVT PPX: heparin -Hygiene: Shower today. Maintain dressing clean and dry. Meticulous cleaning after BMs away from the incision site -Drains: Maintain for now at half compression. may d/c tomorrow. -Encourage IS 10x/hr -Dispo: Anticipate discharge home tomorrow 06/11/22 with homecare *I reviewed and discussed this case with my attending Dr. Villarreal, whom has reviewed this chart and films and is in agreement with assessment and plan of care as outlined above. I have personally seen and examined the patient, performed the documentation and the assessment and plan as written. Number of minutes spent on the visit: 20 minutes.
--- NOTE | 2022-06-10 11:41 | P.PN ---
Subjective Progress Note Date: 06/10/22 Patient was seen and examined. No acute events overnight. Patient reports continued pain in her lower back at the site of surgery. She has been able to ambulate. General: non toxic, no distress, appears at stated age Derm: warm, dry Head: atraumatic, normocephalic, symmetric Eyes: EOMI, no lid lag, anicteric sclera Mouth: no lip lesion, mucus membranes moist Cardiovascular: S1S2 reg, no murmur Lungs: CTA bilateral, no rhonchi, no rales , no accessory muscle use Abdominal: soft, nontender to palpation Ext: no gross muscle atrophy, no edema, no contractures Neuro: no focal neuro deficits Psych: Alert, oriented, appropriate affect #SIRS #Elevated blood pressure without history of hypertension #Leukocytosis #Acute blood loss anemia #COPD not in exacerbation #GERD #Anxiety disorder Patient does meet SIRS criteria with tachycardia, leukocytosis. This is however less likely infectious. Leukocytosis related to Decadron and stress from surgical procedure. Tachycardia from increased lower back pain at the site of surgery. Would continue to monitor. Patient has elevated BP of 144/77. She is not on any antihypertensive medication. She'll be started on hydralazine 25 mg by mouth 4 times a day as needed for SBP greater than 180 or DBP greater than 100. Her vital signs are be monitored and medication adjusted if necessary. Likely related to Decadron and stress from surgical procedure. No signs of active infection. Continue to monitor. Patient with hemoglobin of 9.4, improved. Her hemoglobin on 06/02/2022 was 10.5. This is likely expected blood loss from surgery. Continue albuterol neb as needed for shortness of breath and wheezing. Restart omeprazole. Restarted Wellbutrin. DVT prophylaxis: [SCDs] Discussed with: [Patient, nursing] Anticipated discharge: [1-2 days] Anticipated discharge place: [Home] Thank you for this consultation. Please call sound physicians with additional questions or concerns. Objective - Vital Signs Vital signs: Vital Signs Temp 98.1 F 06/10/22 07:34 Pulse 98 06/10/22 08:14 Resp 17 06/10/22 07:34 BP 144/77 06/10/22 07:34 Pulse Ox 96 06/10/22 08:04 FiO2 Intake & Output 06/09/22 06/10/22 06/10/22 18:59 06:59 18:59 Intake Total 610 480 Output Total 800 170 100 Balance -190 -170 380 Intake: Intake, IV Titration 250 Amount Vancomycin 1,250 mg In 250 Sodium Chloride 0.9% 250 ml @ 125 mls/hr IVPB Q12H [facility] Rx#:[id number] Oral 360 480 Output: Drainage 200 170 100 Left Lower Back 200 170 100 Urine 600 Other: Voiding Method Indwelling Catheter Toilet # Voids 1 1 - Labs CBC & Chem 7: 06/09/22 05:32 06/10/22 05:54 Labs: Abnormal Lab Results - Last 24 Hours (Table) 06/02/22 Range/Units 09:27 Crossmatch See Detail
[2022-06-10] MEDS: VANCOMYCIN 1,250 MG in SODIUM CHLORIDE 0.9% 250 ML IVPB SCH ×2 (12:40→22:43)
[2022-06-11] MEDS: ACETAMINOPHEN TAB 325 MG TAB PO SCH ×2 (06:24→13:30)
[2022-06-11 06:59] VITALS: BP 122/79; RESP 20; TEMP 98.2
[2022-06-11] MEDS: buPROPion XL 150 MG TAB.ER.24H PO SCH (07:52)
[2022-06-11] MEDS: PANTOPRAZOLE 40 MG TABLET PO SCH (07:52)
[2022-06-11] MEDS: GABAPENTIN 300 MG CAP PO SCH (07:52)
[2022-06-11] MEDS: ALBUTEROL NEBULIZED 2.5 MG/3 ML INHALATION PRN ×2 (08:09→11:35)
--- NOTE | 2022-06-11 08:19 | P.PN ---
Subjective Progress Note Date: 06/11/22 Principal diagnosis: Low back pain, BLE weakness, neurogenic claudication Patient seen and examined at bedside. She states her pain is controlled on cu rrent regimen. Patient continues to report improved symptoms since surgery. Patient denies any bilateral lower extremity numbness or tingling. She is moving herself in bed. Surgical dressing has been changed and hemovac removed. Patient has been working with PT and states she feels she has been doing well. Patient states she feels ready and comfortable with being discharged home today. She denies f/c/sob/cp. Objective - Vital Signs Vital signs: Vital Signs Temp 98.2 F 06/11/22 06:58 Pulse 96 06/11/22 06:58 Resp 20 06/11/22 06:58 BP 122/79 06/11/22 06:58 Pulse Ox 94 L 06/11/22 05:28 FiO2 Intake & Output 06/10/22 06/11/22 06/11/22 18:59 06:59 18:59 Intake Total 970 Output Total 130 100 Balance 840 -100 Intake: Intake, IV Titration 250 Amount Vancomycin 1,250 mg In 250 Sodium Chloride 0.9% 250 ml @ 125 mls/hr IVPB Q12H [facility] Rx#:[id number] Oral 720 Output: Drainage 130 100 Left Lower Back 130 100 Other: Voiding Method Toilet Toilet # Voids 2 - Exam Physical Examination General: The patient is awake and alert, in no acute distress Skin: Skin is warm and dry with no obvious rashes or lesions. Hairy patches absent, no dorsal skin dimples, no cafe au lait spots. Surgical incision to lumbar region. Surgical dressing changed, Hemovac removed. Eye: Pupils are equal, round and reactive to light, extra-ocular movements are intact; there is normal conjunctiva bilaterally. Neck: The neck is supple, there is no tenderness and ROM intact. Cardiovascular: There is a regular rate and rhythm. No murmur, rub or gallop is appreciated. Respiratory: Lungs are clear to auscultation, respirations are non-labored, breath sounds are equal. Gastrointestinal: Soft, non-distended, non-tender abdomen . Back: There is no tenderness to palpation in the midline, paralumbar, parathoracic or buttocks region. There is no obvious deformity . Musculoskeletal: ROM limited secondary to pain and stiffness from surgical procedure. Shoulder abduction 5/5, elbow flexors 5/5, wrist dorsiflexors 5/5. finger abductor 5/5, issue clerk 5/5, hip flexor 5/5, knee flexor 5/5, ankle dorsiflexor 5/5, ankle plantarflexion 5/5 and extensor hallucis 5/5. Neurological: CN 2-12 intact. There are no obvious motor or sensory deficits. Movement and coordination equal and intact. Sensory exam to light touch intact C5-T1 and intact from L2-S1. Reflexes 2/4 in bilateral upper and lower extremities. Negative Hoffmans, babinski, and clonus signs. Psychiatric: Cooperative, appropriate mood & affect, normal judgment. - Labs CBC & Chem 7: 06/09/22 05:32 06/10/22 05:54 Assessment and Plan Assessment: Post Op Day 3 s/p Revision L2-Pelvis decompression and fusion 1. 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 L2-3 and L3-4 central and foraminal stenosis, severe 3. Neurogenic claudication 4. Mechanical low back pain secondary to the above 5. LE weakness 6. LE radiculopathy Plan: Plan: -Appreciate erp consultant and team management. -Prescription left in chart for LSO brace. -Activity: Ambulate QID, OOB all meals, up and about, limit lifting bending twisting to less than 5 lbs. Use walker or cane if needed for stability. -Daily PT/OT, increase ambulation strength and balance. -Brace when up and about, not needed in bed or chair -Pain control: Adequate at this time -Meds: reviewed -GI ppx: senna, Miralax -DVT PPX: heparin -Hygiene: Shower today. Maintain dressing clean and dry. Meticulous cleaning after BMs away from the incision site -Encourage IS 10x/hr -Dispo: Anticipate discharge home today with homecare *I reviewed and discussed this case with my attending Dr. Villarreal, whom has reviewed this chart and films and is in agreement with assessment and plan of care as outlined above. I have personally seen and examined the patient, performed the documentation and the assessment and plan as written. Number of minutes spent on the visit: 20 minutes.
--- NOTE | 2022-06-11 08:30 | P.DS ---
Providers Date of admission: 06/08/22 05:47 Expected date of discharge: 06/11/22 Attending physician: Renan Villarreal DO Consults: 06/08/22 12:31 Consult Physician Routine Consulting Provider: Romina Angeles Consult Reason/Comments: s/p L2-Pelvis Decompression and fusion Do you want consulting provider notified?: Yes Primary care physician: [facility] Course: Hospital Course: The patient was evaluated preoperatively and found to have the diagnosis of lumbar spine stenosis. They underwent appropriate preoperative care and were willing to undergo the intended procedure. They underwent a successful revision [id number] decompression and fusion, were recovered appropriately and sent to the floor. While on the floor they worked with physical therapy, occupational therapy and nursing to enhance their recovery experience. Their pain was well controlled through their stay and they were started on appropriate medications, DVT ppx modalities, activity and dietary needs. Daily labs were monitored closely, and transfusions were only used when necessary. Medicine as well as other consulting services have made their input and have helped with our team approach and multidisciplinary care. PT milestones have been met and passed and they have made the recommendation of home with home care for this patient and treating providers agree with this care path. The patient will be discharged home with appropriate medications, instructions and follow-up information and in stable condition. Plan - Discharge Summary Discharge Rx Participant: Yes New Discharge Prescriptions: New Sulfamethox-Tmp 800-160Mg [Bactrim DS 800-160 mg] 1 tab PO Q12HR 3 Days #6 tab Gabapentin 300 mg PO TID #90 cap Cyclobenzaprine [Flexeril] 5 mg PO TID #90 tablet HYDROcodone/APAP 10-325MG [[place] 10-325] 1 tab PO Q4-6H PRN #56 tab PRN Reason: Pain No Action Albuterol Inhaler [Ventolin Hfa Inhaler] 2 puff INHALATION RT-QID PRN PRN Reason: asthma sx Albuterol Nebulized [Ventolin Nebulized] 2.5 mg INHALATION DIRECTED PRN PRN Reason: asthma sx Fluticasone Propion/Salmeterol [Advair 250-50 Diskus] 1 inhalation PO BID Ketorolac Tromethamine 1 mg PO Q4HR PRN PRN Reason: Pain buPROPion SR [Wellbutrin SR] 150 mg PO DAILY Omeprazole [PriLOSEC] 20 mg PO DAILY Fluticasone Nasal [place] [Flonase Nasal [place]] 1 spray EA NOSTRIL DAILY PRN PRN Reason: Allergy Symptoms Cyclobenzaprine [Flexeril] 10 mg PO QID PRN PRN Reason: Pain Dramamine Otc (Unknown Dose) 1 tab PO DIRECTED PRN PRN Reason: Vertigo Discharge Medication List Albuterol Inhaler [Ventolin Hfa Inhaler] 2 puff INHALATION RT-QID PRN 03/10/20 [History] Albuterol Nebulized [Ventolin Nebulized] 2.5 mg INHALATION DIRECTED PRN 03/10/20 [History] Fluticasone Propion/Salmeterol [Advair 250-50 Diskus] 1 inhalation PO BID 03/10/20 [History] Cyclobenzaprine [Flexeril] 10 mg PO QID PRN 06/03/22 [History] Dramamine Otc (Unknown Dose) 1 tab PO DIRECTED PRN 06/03/22 [History] Fluticasone Nasal [place] [Flonase Nasal [place]] 1 spray EA NOSTRIL DAILY PRN 06/03/22 [History] Ketorolac Tromethamine 1 mg PO Q4HR PRN 06/03/22 [History] Omeprazole [PriLOSEC] 20 mg PO DAILY 06/03/22 [History] buPROPion SR [Wellbutrin SR] 150 mg PO DAILY 06/03/22 [History] Cyclobenzaprine [Flexeril] 5 mg PO TID #90 tablet 06/11/22 [Rx] Gabapentin 300 mg PO TID #90 cap 06/11/22 [Rx] HYDROcodone/APAP 10-325MG [[place] 10-325] 1 tab PO Q4-6H PRN #56 tab 06/11/22 [Rx] Sulfamethox-Tmp 800-160Mg [Bactrim DS 800-160 mg] 1 tab PO Q12HR 3 Days #6 tab 06/11/22 [Rx] Follow up Appointment(s)/Referral(s): [facility], [REFERRING] - As Needed Renan Villarreal DO [Doctor of Osteopathic Medicine] - 2 Weeks (Patient has an appt already scheduled.) Patient Instructions/Handouts: Lumbar Spinal Fusion (DC) Activity/Diet/Wound Care/Special Instructions: Spine Discharge and Recovery Instructions Date of Surgery: 06/08/22 Diagnosis: Lumbar spine stenosis Procedure: Revision L2-Pelvis decompression and fusion Medications: See medication list All medication refills should be obtained through your primary care doctor or your clinic spine surgeon. Please discuss prescription refills at your follow up appointment. Do not call the hospital for medication refills. Dressing: Leave your dressing in place for a total of 5 days post operatively. Then you may remove your dressing and leave open to air. Keep the area clean and if not able to keep area clean, then cover with sterile gauze and tape. Showering: You may shower 3 days after your procedure allowing soap and water to run over incision. Do not scrub. Do not soak. Blot dry. Follow up: Please confirm a follow up appointment with your surgeon 3 weeks post operati vely. Please make an appointment to follow up with your PCP in 1-2 weeks after surgery for evaluation 3 phase, 3-week plan POST OP WEEKS 1-3 1. Lifting/carrying/pushing/pulling limited to less than 5 pounds. 2. Do not sit for longer than 15 minutes at one time. Get up and walk around. Prolonged sitting is NOT advised. If you lay down, see if you can tolerate laying down on you front (belly side) 3. Walk for periods of 15 minutes = 1 mile but no longer; do it multiple times times each day. 4. Ice your low back after activity. POST OP WEEKS 3-6 1. Lifting limited to less than 20 pounds. 2. Do not sit for longer than 30 minutes at a time. Frequently change positions. Use a sit-to stand workstation or take frequent breaks from sitting if you have returned to work. 3. Walk for 30 minutes each day. If possible, do these three or more times a day POST OP WEEKS 6+ At your 6-week appointment we will give you a physical therapy referral to focus on a core stabilization and strengthening program. You should also work on leg & buttock strengthening, hamstring & quadriceps stretching, and continue a low impact aerobic activity program such as swimming, walking, or riding a stationary bicycle. During the initial 6 weeks after your surgery, you are at the highest risk of re-injuring your spine. You should generally avoid BLTs (bending, lifting and twisting combination motions) and follow the above guidelines to reduce the chance of reinjury. You can anticipate post op appointments in our office at approximately 3 weeks and 6 weeks after your surgery. INCISION CARE: If your incision is not draining you do NOT need to cover it with a dressing. Keep your incision clean, dry and intact. In most cases, we apply skin glue, vicente or sutures to the incision at the time of surgery. This will be like a crust or have the appearance of a scab and will fall off in time on its own. The stitches or vicente need to be removed at 3 weeks post op appointment. You may begin to shower 3 days after surgery (this allows the glue to oakley well). However, please avoid scrubbing the incision site or peeling off any of the skin glue. This will ensure optimal healing of your incision. Also, during this time avoid soaking the incision area in water - this includes swimming pools, hot tubs or baths. No ointments, lotions or oi ls on the incision until your surgeon allows. Leave vicente, sutures or glue in place. Neurological dysfunction that comes on suddenly can also be a sign of a stroke. Below some common symptoms of a stroke are listed: B - balance difficulty such as sudden onset walking or leaning to one side - NEW E - eye problem such as sudden double vision or trouble seeing on one side - NEW F - Facial weakness or numbness on one side - NEW A - Arm or leg weakness or numbness on one side - NEW S - Slurred speech or difficulty with word finding - NEW T - Time is BRAIN! Call 911 as soon as you recognize these symptoms Diet: Consume a regular diet rich in vegetables and lean protein such as chicken or fish. You should consume in a ratio of approximately 20% fats|40% carbohydrates|40%protein. Vegetables, sweet potatoes, brown rice or quinoa are examples of good carbohydrates. Chips, white bread, cookies and sweets/sugar are examples of bad carbohydrates. Limit your bad carbs, go wild with good carbs. "Life's Simple 7" Guidelines as per [place] [employer] These will help you reclaim your life after surgery and blast furnace keeper helper in your recovery, keeping in mind your restrictions. (1) Get Active. Physical activity can help people lose weight, control high blood pressure and cholesterol, feel emotionally better, and sleep better. (2) Control Cholesterol. Avoid a diet high in saturated fat, trans fat, & cholesterol. Limit whole milk & cream, ice cream, butter, egg yolks, processed meats (like sausage and hot dogs), and fatty meats. Choose healthy foods that are low in saturated fat, trans fat and cholesterol which include: Fruits and vegetables, fiber rich grain products (like whole grain pasta and brown rice), lean meat such as chicken, fish, nuts, seeds, and legumes. (3) Eat Better. Eat small portions. Shop at the grocery with a list and do not stray from it. Tips for a healthy diet include: Limit sodium intake to less than 1500mg daily, avoid prepackaged, processed, and fast foods, choose a diet rich in fruits, vegetables, and whole grain, high fiber foods, and limit saturated & cholesterol in your diet. (4) Manage Blood Pressure. If you have high blood pressure, you should have a cuff at home so that you can check your blood pressure regularly. Be sure you have a good cuff. An arm one is generally better than a wrist one. Bring the cuff to a doctor's appointment to validate that the measurements that your cuff are taking are accurate. Take your blood pressure twice daily when you are sitting down and relaxing. Record the numbers in a log and bring this log with you to your doctors' appointments. (5) Lose Weight if your BMI is above 25. A healthy BMI is between 19-25. To calculate Your BMI, you may use a Standard BMI Calculator on the NIH BMI website: <www.nhlbi.nih.gov/guidelines/obesity/BMI/bmicalc.htm>. Weigh oneself daily. If you are overweight, set a goal to lose weight. A pound a week loss if needed is a good target. (6) Reduce Blood Sugar. Limit foods and liquids with "added sugars." (Added sugars include sucrose, fructose, glucose, maltose, dextrose, high fructose corn syrup, corn syrup, concentrated fruit juice and honey). (7) Stop Smoking. If you smoke, quitting smoking is one of the best things that you can do for your health. Smoking increases your risk of heart attack, stroke, and peripheral vascular disease, which is a build-up of plaque in your a rteries. Please discard all the cigarettes and lighters in your house. Have a plan for what you will do when you have the urge to smoke. Direct and second- hand smoke shortens your life as well as the lives of your family, friends and others around you. For your health and the health of those around you, please consider quitting! Proper Bending Body Mechanics: Maintain a wide stance with one foot slightly in front of the other. Keep your back straight. Bend utilizing the strength in your hips and knees. Do not bend at the waist. Maintain the lifted object at your waist-level close to your body. Avoid lifting weight that causes immediately pain or pain anywhere in the body afterwards. Smoking/Nicotine If there was ever one thing that you could do to increase your overall health, decrease your risk of cardiovascular problems by about 39% the second you make the choice, it is to STOP SMOKING. Your body's most instant gratification is the second you stop smoking. We have all heard the studies, read the articles but it is true, smoking is extremely bad for your overall health, and moreover it is detrimental to your bone health. Nicotine, IN ANY FORM, kills bone cells, prevents your body from healing fractures, and significantly prolongs healing after surgery. In spine surgery specifically, it increases your risk of not healing your bones to create a fusion and increases your risk of having a revision surgery due to this up to 60%. I know it is hard. I know it feels impossible. But there are ways. Take control of your life. We are here to help you through it. And when you are ready, ask us and we can direct you to help if you desire. Use the START Plan to Quit Smoking (please visit the HelpguVessel.org website listed below for more information): S = Set a quit date. Choose a date within the next 2 weeks, so you have enough time to prepare without losing your motivation to quit. If you mainly smoke at work, quit on the weekend, so you have a few days to adjust to the change. T = Tell family, friends, and co-workers that you plan to quit. Let your friends and family in on your plan to quit smoking and tell them you need their support and encouragement to stop. Look for a quit keith who wants to stop smoking as well. You can help each other get through the rough times. A = Anticipate and plan for the challenges you'll face while quitting. Most people who begin smoking again do so within the first 3 months. You can help yourself make it through by preparing ahead for common challenges, such as nicotine withdrawal and cigarette cravings. R = Remove cigarettes and other tobacco products from your home, car, and work. Throw away all your cigarettes (no emergency pack!), lighters, ashtrays, and matches. Wash your clothes and freshen up anything that smells like smoke. Shampoo your car, clean your drapes and carpet, and steam your furniture. T = Talk to your doctor about getting help to quit. Your doctor can prescribe medication to help with withdrawal and suggest other alternatives. If you can't see a doctor, you can get many products over the counter at your local pharmacy or grocery store, including the nicotine patch, nicotine lozenges, and nicotine gum. Resources for Quitting Smoking: <https://www.[place].gov/documents/[facility]/Quit_Tobacco_Resources_for_patients_313 480_7.pdf> Supplementation: Take recommended dosages of Vitamin D and Calcium to help fortify your bones and help them to heal. See your health maintenance packet for dosages and recommended levels. DVT/VTE prophylaxis: You will be given compression stockings from the hospital. Wear these daily for the first two weeks after surgery. You may take them off at night. You may be prescribed a medication to help thin your blood. Take this as directed. If you are not prescribed this medication, early and frequent ambulation has been shown to be the best prophylaxis to deep vein thrombosis and sequelae related to this event. Discharge Disposition: HOME WITH HOME HEALTH SERVICES
[2022-06-11] MEDS ORDERED: VANCOMYCIN TROUGH DUE 1 EACH MISC MISCELLANE ONE (11:00)
[2022-06-11 11:46] VITALS: PULSE 104
--- NOTE | 2022-06-11 11:49 | P.PN ---
Subjective Progress Note Date: 06/11/22 Patient was seen and examined. No acute events overnight. Speaking on the phone comfortably. General: non toxic, no distress, appears at stated age Derm: warm, dry Head: atraumatic, normocephalic, symmetric Eyes: EOMI, no lid lag, anicteric sclera Mouth: no lip lesion, mucus membranes moist Lungs: no accessory muscle use Ext: no gross muscle atrophy, no edema, no contractures Psych: Alert, oriented, appropriate affect #SIRS #Elevated blood pressure without history of hypertension #Leukocytosis #Acute blood loss anemia #COPD not in exacerbation #GERD #Anxiety disorder Patient does meet SIRS criteria with tachycardia, leukocytosis. This is however less likely infectious. Leukocytosis related to Decadron and stress from surgical procedure. Tachycardia from increased lower back pain at the site of surgery. Patient has elevated BP of 122/79. Blood pressure is much improved with adequate pain control. Likely related to Decadron and stress from surgical procedure. No signs of active infection. Continue to monitor. Patient with hemoglobin of 9.4, improved. Her hemoglobin on 06/02/2022 was 10.5. This is likely expected blood loss from surgery. Continue albuterol neb as needed for shortness of breath and wheezing. Restart omeprazole. Restarted Wellbutrin. Patient cleared for discharge from a medical perspective. Thank you for this consultation. Please call sound physicians with additional questions or concerns. Objective - Vital Signs Vital signs: Vital Signs Temp 98.2 F 06/11/22 06:58 Pulse 104 H 06/11/22 11:45 Resp 20 06/11/22 06:58 BP 122/79 06/11/22 06:58 Pulse Ox 97 06/11/22 08:09 FiO2 Intake & Output 06/10/22 06/11/22 06/11/22 18:59 06:59 18:59 Intake Total 970 Output Total 130 100 70 Balance 840 -100 -70 Intake: Intake, IV Titration 250 Amount Vancomycin 1,250 mg In 250 Sodium Chloride 0.9% 250 ml @ 125 mls/hr IVPB Q12H [facility] Rx#:[id number] Oral 720 Output: Drainage 130 100 70 Left Lower Back 130 100 70 Other: Voiding Method Toilet Toilet Toilet # Voids 2 - Labs CBC & Chem 7: 06/09/22 05:32 06/10/22 05:54
[2022-06-11] MEDS: VANCOMYCIN 1,250 MG in SODIUM CHLORIDE 0.9% 250 ML IVPB SCH (13:21)
== END 2022-06-11 15:40 | disposition home health service (06) | DRG 460 ==
LOC: 2ORMAIN 05:47 → 4SSUR 15:09
PROVIDERS: ADMIT Orthopaedic Surgery; ATTEND Orthopaedic Surgery
PROC: 00NY0ZZ Release Lumbar Spinal Cord, Open Approach (ICD-10-PCS; 2022-06-08)
PROC: 0ST20ZZ Resection of Lumbar Vertebral Disc, Open Approach (ICD-10-PCS; 2022-06-08)
PROC: 0QP104Z Removal of Internal Fixation Device from Sacrum, Open Approach (ICD-10-PCS; 2022-06-08)
PROC: 0QP004Z Removal of Internal Fixation Device from Lumbar Vertebra, Open Approach (ICD-10-PCS; 2022-06-08)
PROC: 30233N1 Transfusion of Nonautologous Red Blood Cells into Peripheral Vein, Percutaneous Approach (ICD-10-PCS; 2022-06-08)
PROC: 0SG10AJ Fusion of 2 or more Lumbar Vertebral Joints with Interbody Fusion Device, Posterior Approach, Anterior Column, Open Approach (ICD-10-PCS; principal; 2022-06-08 07:30)
DX: M96.0 Pseudarthrosis after fusion or arthrodesis (principal); D62 Acute posthemorrhagic anemia; Y83.8 Other surgical procedures as the cause of abnormal reaction of the patient, or of later complication, without mention of misadventure at the time of the procedure; Y79.3 Surgical instruments, materials and orthopedic devices (including sutures) associated with adverse incidents; F41.9 Anxiety disorder, unspecified; T38.0X5A Adverse effect of glucocorticoids and synthetic analogues, initial encounter; D72.829 Elevated white blood cell count, unspecified; M47.26 Other spondylosis with radiculopathy, lumbar region; M48.062 Spinal stenosis, lumbar region with neurogenic claudication; J44.9 Chronic obstructive pulmonary disease, unspecified; K21.9 Gastro-esophageal reflux disease without esophagitis; Z96.642 Presence of left artificial hip joint; M79.7 Fibromyalgia; E66.9 Obesity, unspecified; Z68.28 Body mass index [BMI] 28.0-28.9, adult; Z79.899 Other long term (current) drug therapy; Z87.891 Personal history of nicotine dependence; Z79.01 Long term (current) use of anticoagulants
CPT/HCPCS: 72100; 72131; 82565; 85025; 85027; 86850; 86900; 86901; 86920; 94640; 94760

== ENCOUNTER → 2023-08-25 | Outpatient (CLI) | payer MEDICARE ==
--- NOTE | 2023-08-25 09:10 | MM ---
Reason for Exam: Follow-up at short interval from prior study. Last mammogram was performed 1 year(s) and 5 month(s) ago. Patient History: Menarche at age 14. Patient has no children. Left ovary removed at age 41. Right ovary removed at age 41. Hysterectomy at age 41. Postmenopausal. Maternal grandmother had breast cancer, age 65. Risk Values: Ynes 5 year model risk: 1.6%. NCI Lifetime model risk: 7.9%. Prior Study Comparison: 08/17/2017 Bilateral Screening Mammogram, [facility]. 08/18/2018 Bilateral Screening Mammogram, [facility]. 08/27/2019 Bilateral Screening Mammogram, [facility]. 03/03/2022 Bilateral MG 3D screening mammo w/cad, [facility]. Tissue Density: There are scattered fibroglandular densities. Findings: Analyzed By CAD. No new area of mass or distortion. No suspicious calcifications. Ultrasound at the site of prior concern right breast. Overall Assessment: Incomplete: need additional imaging evaluation, BI-RAD 0 Management: Diagnostic Breast Ultrasound of the right breast. . Results were given to the patient verbally at the time of exam. Patient should continue monthly self-breast exams. A clinical breast exam by your physician is recommended on an annual basis. This exam should not preclude additional follow-up of suspicious palpable abnormalities. Note on Ynes scores and lifetime risk: 1. A Ynes score greater than 3% is considered moderate risk. If this is the case, consider specialist referral to assess eligibility for a risk reducing agent. 2. If overall lifetime risk for the development of breast cancer is 20% or higher, the patient may qualify for future screening with alternating mammogram and breast MRI. Electronically signed and approved by: Chacorta Gonzalez M.D. Radiologis
--- NOTE | 2023-08-25 10:22 | USB ---
Reason for Exam: Additional evaluation requested from prior study. Patient History: Menarche at age 14. Patient has no children. Left ovary removed at age 41. Right ovary removed at age 41. Hysterectomy at age 41. Postmenopausal. Maternal grandmother had breast cancer, age 65. Risk Values: Ynes 5 year model risk: 1.6%. NCI Lifetime model risk: 7.9%. Technique: Method: Targeted. Prior Study Comparison: 08/27/2019 Bilateral Screening Mammogram, [facility]. 03/03/2022 Bilateral MG 3D screening mammo w/cad, [facility]. 03/15/2022 Right MG 3D work up w/cad RT, [facility]. Findings: The lower inner quadrant of the right breast, the axilla of the right breast and the retroareolar of the right breast were scanned. No solid or cystic masses are identified.. Overall Assessment: Negative, BI-RAD 1 Management: Screening Mammogram of both breasts in 1 year. A clinical breast exam by your physician is recommended on an annual basis and results should be correlated with mammographic findings. This exam should not preclude additional follow-up of suspicious palpable abnormalities. Results were given to the patient verbally at the time of exam. Electronically signed and approved by: Chacorta Gonzalez M.D. Radiologis
== END | disposition home or self-care (01) ==
LOC: RADMAMWWP 08:43
PROVIDERS: ATTEND Family Medicine
DX: R92.323 Mammographic fibroglandular density, bilateral breasts (principal); Z78.0 Asymptomatic menopausal state; Z80.3 Family history of malignant neoplasm of breast
CPT/HCPCS: 77066; 76642; G0279; 77062